=== PATIENT | female | born 1960 | race Caucasian/White ===

== ENCOUNTER 2018-09-15 04:56 | Inpatient (IN) ==
--- NOTE | 2018-08-23 12:30 | Anesthesiology Consultation ---
Date of Service August 23, 2018 Assessment & Plan (1) Encounter for pre-operative examination: Chart Review Chart Review: Acceptable Risk for Surgery and Patient seen in Pre Admission Testing Teaching & Discussion Instructed NPO after midnight before surgery, except medications with 15 cc of water. Medication instructions provided according to the PAT guidelines. History Surgery Operation Date: 09/15/18 11:30 Proposed Procedures p Bilateral Total Knee Arthroplasty - Keven Mcdermott MD Height/Weight Height: 5 ft 6.5 in Weight: 111.7 kg Allergies Allergy/AdvReac Type Severity Reaction Status Date / Time erythromycin base Allergy Intermediate FELT GOOFY Verified 08/19/18 13:06 IN HEAD Penicillins Allergy Mild Rash Verified 08/19/18 13:06 meperidine [From Demerol] AdvReac Mild FEEL SICK Verified 08/19/18 13:06 Medications Home Medications Medication Instructions Recorded Confirmed Last Taken amitriptyline 75 mg PO HS 08/19/18 08/19/18 Unknown carvedilol [Coreg] 3.125 mg PO BID 08/19/18 08/19/18 Unknown insulin NPH isoph U-100 human 30 unit SUBCUT QAM 08/19/18 08/19/18 Unknown [Humulin N NPH Insulin KwikPen] lisinopril [Zestril] 5 mg PO QAM 08/19/18 08/19/18 Unknown meloxicam [Mobic] 15 mg PO QAM 08/19/18 08/19/18 Unknown metformin 1,000 mg PO BID 08/19/18 08/19/18 Unknown multivitamin 1 tab PO DAILY 08/19/18 08/19/18 Unknown omeprazole 20 mg PO BID 08/19/18 08/19/18 Unknown sertraline [Zoloft] 50 mg PO QAM 08/19/18 08/19/18 Unknown Past Medical History Medical History Depression Diabetes mellitus, type 2 GERD (gastroesophageal reflux disease) Hypertension Migraine Obesity Osteoarthritis PVC (premature ventricular contraction) BENIGN Past Family History Family History Father Family hx of colon cancer Past Surgical History Surgical History Family history of reaction to anesthesia SISTER-SLOW TO WAKE UP History of arthroscopy RT/LEFT KNEE History of carpal tunnel release RT/LEFT History of section X 2 History of cholecystectomy History of colonoscopy History of dilatation and curettage History of esophagogastroduodenoscopy (EGD) History of tooth extraction Nausea and vomiting after administration of anesthetic agent Past Anesthesia History No Hx of Anesthesia Complications (other than PONV) and No Family Hx of Anesthesia Complications History of PONV Yes (mostly with jann) Motion Sickness Screening History of Motion Sickness: Yes Social History Smoking Status: Never smoker Do You Dip or Chew Tobacco: No Hx Alcohol Use: No Hx Substance Use: No substance use type: does not use Exercise / Class Metabolic Activity III < 4 Walking/Shop/Light housework (+SOB, mild, with 1 FOS, denies CP. No SOB with ambulation.) Review of Systems Pt denies any recent chest pain, shortness of breath, palpitations, cough, fever or URI. Physical Exam Vital Signs BP: 116/74 P: 73bpm SPO2: 98% RA T: 98.0 F R: 16 ENMT Mouth: + chipped teeth (one broken corwn/root canal bottom L molar); no dental restorations and no loose teeth Thyromental Distance: > or= 3.5 Finger Breadths (3.5) Mallampati Class: I Neck normal visual inspection; neck extension not limited Respiratory normal respiratory effort Auscultation: lungs clear to auscultation bilaterally Cardiovascular Rate/Rhythm: regular rate and regular rhythm Heart Sounds: no murmur Vessels: no carotid bruit Testing Electrocardiogram Date: 08/23/18 Findings: + NSR @ (69) Chest X-Ray Date: 08/23/18 Findings: + NAD Laboratory Results 08/23/18 13:08 08/23/18 13:08 Blood Type O Positive 08/23/18 13:00 Antibody Screen NEGATIVE 08/23/18 13:00 PT 10.6 Seconds (9.0-12.0) 08/23/18 13:08 INR 1.1 (0.9-1.1) 08/23/18 13:08 APTT 25.5 Seconds (21.0-31.0) 08/23/18 13:08 Hemoglobin A1c 7.4 % (4.5-5.6) H 08/23/18 13:08 Urine Color Yellow 08/23/18 Unknown Urine Appearance Clear (Clear) 08/23/18 Unknown Urine pH 5.0 (4.5-7.5) 08/23/18 Unknown Ur Specific [place] 1.015 (1.000-1.030) 08/23/18 Unknown Urine Protein Negative (Negative) 08/23/18 Unknown Urine Glucose (UA) Negative (Negative) 08/23/18 Unknown Urine Ketones Negative (Negative) 08/23/18 Unknown Urine Nitrite Negative (Negative) 08/23/18 Unknown Ur Leukocyte Esterase Negative (Negative) 08/23/18 Unknown
--- NOTE | 2018-08-23 12:33 | PAT Medication Instructions ---
Medication Instructions Date of Service August 23, 2018 Home Medications amitriptyline 75 mg PO HS carvedilol [Coreg] 3.125 mg PO BID [Humulin N NPH Insulin KwikPen] 30 unit SUBCUT QAM lisinopril [Zestril] 5 mg PO QAM meloxicam [Mobic] 15 mg PO QAM metformin 1,000 mg PO BID multivitamin 1 tab PO DAILY omeprazole 20 mg PO BID sertraline [Zoloft] 50 mg PO QAM ASK your surgeon for instructions meloxicam [Mobic] 15 mg PO QAM DO NOT take the morning of surgery lisinopril [Zestril] 5 mg PO QAM metformin 1,000 mg PO BID multivitamin 1 tab PO DAILY Take morning of surgery With a small sip of water, OTHERWISE NOTHING TO EAT OR DRINK AFTER MIDNIGHT: carvedilol [Coreg] 3.125 mg PO BID omeprazole 20 mg PO BID sertraline [Zoloft] 50 mg PO QAM Take evening before surgery amitriptyline 75 mg PO HS carvedilol [Coreg] 3.125 mg PO BID metformin 1,000 mg PO BID Insulin Dependent Diabetic Patients * Test your blood sugar the morning of surgery * If Blood Sugar is GREATER THAN 150, take HALF of your regular dose of: [ Humulin N NPH Insulin KwikPen] 30 unit SUBCUT QAM -- TAKE 15 UNITS * If Blood Sugar is LESS THAN 150, DO NOT TAKE ANY: [Humulin N NPH Insulin KwikPen] Other Notes If you have any questions please call us at [phone] or [phone] or [phone] or [phone]
--- NOTE | 2018-08-23 13:30 | XRay Report ---
XR chest Pre-admission PA/Lat CLINICAL HISTORY: pat preoperative COMPARISON STUDY: No previous studies for comparison. FINDINGS: The bones soft tissues and hemidiaphragms are normal. The cardiomediastinal silhouette is n ormal. The lungs are clear. The pulmonary vasculature is normal. IMPRESSION: Negative chest. The above report was generated using voice recognition software. It may contain grammatical, syntax or spelling errors. Electronically signed by: Kingsley Rothman M.D. 08/23/2018 1:29 PM
[2018-08-23 13:46] LABS: Basophils # (auto) 0.02 K/uL (0-0.2); Basophils % (auto) 0.3 %; Eosinophils # (auto) 0.21 K/uL (0-0.5); Eosinophils % (auto) 2.9 %; Hematocrit (blood only) 37.9 % (37-47); Hemoglobin 11.6 g/dL (12.0-16.0); Immature Granulocytes # (auto) 0.01 K/uL (0.00-0.02); Immature Granulocytes % (auto) 0.1 %; Lymphocytes # (auto) 1.69 K/uL (1.2-3.4); Lymphocytes % (auto) 23.4 %; Mean Corpuscular Hgb Conc 30.6 g/dL (32-36); Mean Corpuscular Volume 91.1 fL (80-100); Mean Platelet Volume 9.7 fL (7.4-10.4); Monocytes # (auto) 0.43 K/uL (0.11-0.59); Neutrophils # (auto) 4.86 K/uL (1.4-6.5); Neutrophils % (auto) 67.3 %; Platelet Count 307 K/uL (130-400); RDW Coefficient of Variation 13.3 % (11.5-14.5); Red Blood Count 4.16 M/uL (4.2-5.4); White Blood Count 7.22 K/uL (4.8-10.8)
[2018-08-23 13:51] LABS: Appearance Urine Clear (Clear); Bilirubin Urine Negative (Negative); Blood Urine Negative (Negative); Color Urine Yellow; Glucose Urine UA Negative (Negative); Ketones Urine Negative (Negative); Leukocyte Esterase Urine Negative (Negative); Nitrite Urine Negative (Negative); Protein Urine Negative (Negative); Specific Gravity Urine 1.015 (1.000-1.030); Urobilinogen Urine Negative (Negative)
[2018-08-23 14:01] LABS: INR 1.1 (0.9-1.1); Partial Thromboplastin Time 25.5 Seconds (21.0-31.0); Prothrombin Time 10.6 Seconds (9.0-12.0)
[2018-08-23 14:29] LABS: Estimated Average Glucose 166 mg/dl; Hemoglobin A1C 7.4 % (4.5-5.6)
[2018-08-23 15:39] LABS: Albumin Level 3.5 gm/dl (3.4-5.0); Calcium 9.4 mg/dl (8.5-10.1); Est GFR (African American) 99.3; Est GFR (Non-African American) 85.7; Potassium 4.6 mmol/L (3.5-5.1)
--- NOTE | 2018-09-14 12:23 | History and Physical Report ---
DATE OF ADMISSION: 09/15/2018 CHIEF COMPLAINT: Chronic bilateral knee pain. HISTORY OF PRESENT ILLNESS: This is a 58-year-old female patient of Dr. Mcdermott'liliana complaining of chronic bilateral knee pain, longstanding, now progressively getting worse. She has failed conservative treatment including anti-inflammatories, bilateral intra-articular injections, home exercise program and the use of crutches. She has been diagnosed with end-stage osteoarthritis in both of her knees and wishes to proceed with bilateral total knee arthroplasty. PAST MEDICAL HISTORY: Diabetes with insulin, acid reflux, hiatal hernia, obesity, kidney stones. SOCIAL HISTORY: Nonsmoker, nondrinker. PAST SURGICAL HISTORY: Gallbladder, x2, knee arthroscopy x2, carpal tunnel x2. FAMILY HISTORY: Noncontributory. REVIEW OF SYSTEMS: Chronic bilateral knee pain and instability. Otherwise, denies any shortness of breath, chest pain, nausea, vomiting or any other joint complaints. MEDICATIONS: Include Humulin 30 units daily, metformin 100 mg twice daily, lisinopril 5 mg daily, Zoloft 50 mg daily, amitriptyline 75 mg daily, Coreg 3.25 mg twice daily, omeprazole 20 mg twice daily, meloxicam 15 mg daily. ALLERGIES: PENICILLIN, ERYTHROMYCIN AND DEMEROL. PHYSICAL EXAMINATION: GENERAL: Well-developed, well-nourished 58-year-old female in no acute distress. She is alert and oriented x3 and pleasant. HEENT: Normocephalic, atraumatic. Extraocular motions are intact. Pupils are equal and reactive to light. HEART: Regular rate and rhythm. No murmurs appreciated. LUNGS: Clear. ABDOMEN: Soft, nontender, bowel sounds present. EXTREMITIES: Both knees with crepitation and mild effusion, both knees with limited range of motion, both knees with varus deformity and medial joint line tenderness. Neurologically and neurovascularly, she is intact in both lower extremities. DIAGNOSES: Bilateral knee end-stage osteoarthritis, diabetes with insulin, acid reflux, hiatal hernia, obesity, history of kidney stones. PLAN: The patient was advised of her diagnosis. Indications, risks, benefits, and postop course have all been reviewed. The patient wished to proceed with bilateral total knee arthroplasty. Necessary consent forms, preoperative testing and clearances will be obtained. EMMANUEL
[2018-09-15] MEDS ORDERED: ACETAMINOPHEN 500 MG TAB PO SCH (06:00)
[2018-09-15] MEDS ORDERED: FAMOTIDINE 20 MG TAB PO SCH (06:00)
[2018-09-15] MEDS ORDERED: CeleBREX 200 MG CAP PO SCH (06:00)
[2018-09-15] MEDS ORDERED: VANCOMYCIN HCL 1,750 MG in SODIUM CHLORIDE 0.9% 500 ML IV SCH ×2 (06:00→18:00)
[2018-09-15] MEDS ORDERED: ROPIVACAINE 0.5% HCL/PF 150 MG, BUPIVACAINE 0.5% MPF 30 ML, EPINEPHrine 30MG/30ML (OR U... INFIL SCH (06:00)
[2018-09-15] MEDS ORDERED: TRANEXAMIC ACID 1,000 MG **IV Pre-op IV SCH (06:00)
[2018-09-15] MEDS ORDERED: LR 500ML BOLUS, THEN 15ML/HR IV SCH (06:00)
[2018-09-15] MEDS ORDERED: GABAPENTIN 300 MG x 2 PO SCH (06:00)
[2018-09-15] MEDS ORDERED: METOCLOPRAMIDE HCL 10 MG TABLET PO SCH (06:00)
[2018-09-15] MEDS ORDERED: BUPIVACAINE 0.5 % 5 MG/1 ML PF 10ML VIAL ONE (06:22)
[2018-09-15] MEDS ORDERED: BUPIVACAINE/EPINEPHRINE 0.5% MPF 1:200,000 30 ML VIAL ONE (06:22)
[2018-09-15] MEDS ORDERED: DEXAMETHASONE SOD INJ 4 MG/ML VIAL ONE (06:23)
[2018-09-15] MEDS ORDERED: TRANEXAMIC ACID 1,000 MG **IV Intra-op IV SCH (06:30)
[2018-09-15] MEDS ORDERED: MIDAZOLAM HCL 1 MG/ML 2ML VIAL ONE (06:39)
[2018-09-15] MEDS ORDERED: fentaNYL citrate 100 MCG/2 ML VIAL ONE (06:39)
[2018-09-15] MEDS ORDERED: ORTHO JOINT ANESTHETIC ONE (06:53)
[2018-09-15] MEDS ORDERED: POVIDONE-IODINE OP SOLN 30 ML BTL ONE (06:53)
[2018-09-15] MEDS ORDERED: BACITRACIN INJ 50,000 UNIT VIAL ONE (06:53)
--- NOTE | 2018-09-15 07:14 | History & Physical Bridge Note ---
Date of Service September 15, 2018 History & Physical Bridge Note I have examined the patient, reviewed the History & Physical and in the interval since the performance of the History & Physical I have noted the following changes of clinical significance: no changes noted
[2018-09-15] MEDS ORDERED: ePHEDrine sulfate 50 MG/ML AMP IV PRN (07:40)
[2018-09-15] MEDS ORDERED: ATROPINE SULFATE 0.1 MG/ML 10ML SYR IV PRN (07:40)
[2018-09-15] MEDS ORDERED: ONDANSETRON INJ 2 MG/ML 2 ML VIAL IV PRN ×2 (07:40→12:01)
[2018-09-15] MEDS ORDERED: fentaNYL citrate 100 MCG/2 ML VIAL IV PRN (07:40)
[2018-09-15] MEDS ORDERED: PROPOFOL IV EMULSION 10 MG/ML 20 ML VIAL IV ONE ×2 (08:13→08:48)
[2018-09-15] MEDS ORDERED: LIDOCAINE HCL 2% 2 ML VIAL/AMP(20MG/ML) INFIL ONE ×2 (08:13→11:29)
--- NOTE | 2018-09-15 10:18 | Post Operative Brief Note ---
Immediate Post Op Note v1 Date of Surgery September 15, 2018 Pre & Post Diagnosis Operation Date: 09/15/18 07:30 Pre-Op Diagnosis: BILATERAL KNEE OSTEOARTHRITIS, obesity BMI 39 Post-Op Diagnosis: BILATERAL KNEE OSTEOARTHRITIS, obesity BMI 39 Procedure Operation Date: 09/15/18 07:30 Actual Procedures p Bilateral Total Knee Arthroplasty(Bilateral) - Keven Mcdermott MD Surgeon Keven Mcdermott MD Carcass Splitter Manish ZENDEJAS Estimated Blood Loss 10 Findings Consistent with Post-Op Diagnosis Specimens Bone cuts Drains Hemovac Drain (bilateral ) Anesthesia Type Spinal MAC Complications none Disposition Accompanied Patient To Recovery: No Disposition: Recovery Room Overlapping Procedure I was immediately available: during the entire case.
--- NOTE | 2018-09-15 10:32 | Operative Report ---
Post Operative Report Pre & Post Diagnosis Operation Date: 09/15/18 07:30 Pre-Op Diagnosis: BILATERAL KNEE OSTEOARTHRITIS, obesity BMI 39.6 Post-Op Diagnosis: BILATERAL KNEE OSTEOARTHRITIS, obesity BMI 39.6 Procedure Operation Date: 09/15/18 07:30 Actual Procedures p Bilateral Total Knee Arthroplasty(Bilateral) - Keven Mcdermott MD Surgeon Keven Mcdermott MD Iron Cutter Manish ZENDEJAS Estimated Blood Loss 10 Findings See Below Severe tricompartmental DJD varus knees [id number] medial compartment and patellofemoral partial ACL tears with degeneration ACL Specimens Bone cuts Drains 2 Hemovac in each knee Anesthesia Type Spinal MAC Complications none Disposition Accompanied Patient To Recovery: No Disposition: Recovery Room Indications 58-year-old female with severe bilateral knee osteoarthritis she has had extensive conservative management. She developed allergy to steroid injections. Radiographs demonstrate that she has severe tricompartmental DJD [id number] patellofemoral and medial compartment bilaterally with varus knees. Description of Procedure The patient was taken to the operating room and anesthetized under spinal adductor nerve block bilateral knees. Patient was placed supine on the the operating table. A pneumatic tourniquet was placed about both upper thighs. The knee exam demonstrated left knee had a flexion contracture right knee did not she had flexion to 125 degrees bilateral with varus knees [id number] crepitation and small effusions. She had obese knees with obese upper thighs. No varus valgus instability. Attention was first taken to the left leg. The left leg was elevated exsanguinated with Esmarch bandage and the pneumatic tourniquet was raised to 350 millimeters mercury. A longitudinal incision was made across the anterior knee. Skin flaps were elevated. An incision was made into the medial retinaculum and extended up into the mid third of the quadriceps tendon and extended down to the tibial tubercle. Intra-articular findings demonstrated tricompartmental DJD [id number] patellofemoral medial compartment large osteophytes throughout the knee. She had near complete tears of the ACL which only had a few strands ligament remaining with rest being degenerative.. The knee was exposed by excising cruciate ligaments and menisci. The infrapatellar fat pad was resected. The fat pad over the anterior femur at the upper aspect of the articular surface was resected for placement of the component in that area. A subperiosteal peel lateral release was performed around the patella The Page [employer] Nephew journey 2.0 total knee arthroplasty system was utilized for the procedure. The custom femoral cutting guide was pinned in position. The distal femoral cut was made. The size 4, 5 in 1 cutting block was placed. The anterior posterior and chamfer cuts were made. It was noted that the patient had soft bone with osteoporotic type bone. The knee was extended and a free hand cut technique was performed to the patella. The patella with was measured and the width was reproduced using a 32 patella component. 3 drill holes are made for the patella component pegs. The tibia was then subluxed. The custom tibial cutting block was pinned in position and the proximal tibial cut was made with the oscillating saw. The size 4 tibial trial was externally rotated in line with the tibial tubercle and pinned in position. The punch for the stem was used. The femoral trial was inserted and centered the notch cutting devices were used and the collet was placed. Tibial trials were used for the insert. The size 12 trial gave balanced ligaments through full range of motion. Patella tracking was assessed with range of motion. The patella tracked centrally. The trials were removed. The Orthomix anesthetic cocktail was injected per protocol. The cut bone surfaces and soft tissue were copiously irrigated with antibiotic solution with bacitracin. The final components were cemented with Simplex cement. The final components were size 4 left Page & Nephew journey 2.0 posterior stabilized femur component, 4 primary tibial baseplate, 12 high flex posterior stabilized poly-insert for tibia and 32 symmetrical patella. While the cement cured the Betadine soak was used per protocol. At this time the right leg was elevated exsanguinated with an Esmarch bandage and matter was raised to 350 mmHg as well. Approach to the right knee was performed in similar fashion to the left. My PA Manish Moncada performed the closure on the left knee simultaneously while I exposed the right knee. When the cement cured the left knee was copiously irrigated with pulsatile lavage antibiotic solution with bacitracin. 2 drains were brought out laterally connected to Hemovac. The quadriceps tendon and medial retinaculum were closed with interrupted [id number] #1 Vicryl sutures. The knee was taken through full range of motion and repair was secure. The subcutaneous tissues were closed with 2-0 Vicryl sutures. The skin was closed with geoff. Temporary sterile dressing was applied and tourniquet was let down on the left knee. Normal circulation was noted. Intra-articular findings of the right knee demonstrate tricompartmental DJD [id number] patellofemoral medial compartment degenerative partial tearing of the ACL tricompartmental osteophytes. Exposure was similar to the left knee. A size 4 custom femoral cutting block was placed the distal femoral cut was first made followed by the anterior posterior and chamfer cuts on the femur followed by the patella exposure with subperiosteal peel lateral release and freehand cut patella cut and osteophytes removed from the patella and drill holes made into the patella. The tibia was exposed and custom tibial cutting block was placed in the proximal tibial cut was made and a lamina sales secretary was used to verify ligamentous balance in extension and flexion. Was noted again the patient had significant soft osteoporotic bone. With the flexion extension gaps being balanced the tibia was exposed and the size 4 tibial trial was actually rotated in line with the tibial tubercle pinned in position and the punch was then was used and then the 4 femoral trial was inserted centered the notch cutting device was used and a call was placed and on 12 insert gait balance ligaments through full range of motion and patella tracked centrally. Trials removed, remainder of anesthetic cocktail injected into the soft tissues per protocol and the knee was copiously irrigated with pulsatile lavage antibiotic solution with bacitracin. Final components were cemented with Simplex cement. Final right components were the Page [employer] Nephew journey 2.0 size 4 posterior stabilized right femur with a 4 primary tibial baseplate with a 12 mm high flex post to stabilize tibial poly-insert and 32 symmetrical patella. After the cement cured on this knee the knee was closed with [id number] #1 Vicryl sutures in the question of tendon medial retinaculum knee was taken through full range of motion and the repair was secure. The subcutaneous tissues were closed with [id number] 2-0 Vicryl sutures and skin closed with geoff. A sterile Silverlon dressing was applied to each incision. A double Ronald wrap foot to the thigh was placed each knee. The tourniquet was let down and the patient had good capillary refill to the extremity. The patient tolerated the procedure well. My physician certified surgical tech/first assistant Manish ZENDEJAS assisted in the procedure including prepping draping leg positioning soft tissue retraction instrument management and assisted in the closure ,dressings application and will participate in postoperative care the patient. I attest to the content of the Intraoperative Record and any orders documented therein. Any exceptions are noted below.
[2018-09-15] MEDS ORDERED: KETAMINE HCL INJ 50 MG/ML 10 ML VIAL ONE (11:14)
--- NOTE | 2018-09-15 11:30 | XRay Report ---
XR knee LT 2V routine CLINICAL HISTORY: 58 years-old Female presenting with Surgical Post Op. TECHNIQUE: Frontal and crosstable lateral views of the left knee were obtained. COMPARISON: None. FINDINGS: Postsurgical changes of total left arthroplasty with patellar resurfacing. No malalignment. No peripr osthetic fracture. Expected intra-articular and soft tissue emphysema. A surgical drain is in place. Overlying skin geoff noted. IMPRESSION: Expected postsurgical appearance status post total left knee arthroplasty with patellar resurfacing. Electronically signed by: Rogerio Almonte M.D. 09/15/2018 11:28 AM
--- NOTE | 2018-09-15 11:31 | XRay Report ---
XR knee RT 2V routine CLINICAL HISTORY: Surgical Post Op COMPARISON: None. DISCUSSION: Anatomic alignment post total right knee arthroplasty. Good contact between prosthetic an d underlying bone. Expected soft tissue postoperative change. IMPRESSION: Anatomic alignment post total right knee arthroplasty. The above report was generated using voice recognition software. It may contain grammatical, syntax or spelling errors. Electronically signed by: Kingsley Rothman M.D. 09/15/2018 11:29 AM
--- NOTE | 2018-09-15 11:44 | Anesthesiology Progress Note ---
Date of Service September 15, 2018 Anesthesia Post Procedure Vital Signs Vital Signs: Temp Pulse Pulse Resp BP Pulse Ox 09/15/18 11:35 36.4 C L 63 14 135/67 94 09/15/18 11:25 61 16 133/69 96 09/15/18 11:15 66 24 136/71 95 09/15/18 11:05 64 15 126/67 96 09/15/18 10:55 67 14 129/71 96 09/15/18 10:46 36.6 C 70 16 130/71 97 09/15/18 06:04 36.7 C 73 20 134/82 97 Pain Intensity Left Knee: Pain Intensity: 5 Right Knee: Pain Intensity: 7 Notes Mental Status: alert / awake / arousable Patient Amnestic to Procedure: Yes Nausea / Vomiting: adequately controlled Pain: adequately controlled Airway Patency, RR, SpO2: stable & adequate BP & HR: stable & adequate Hydration State: stable & adequate Neuraxial Anesthesia: was administered and sensory block is resolving Anesthetic Complications: no major complications apparent
[2018-09-15] MEDS ORDERED: HYDROmorphone INJ 0.5 MG/0.5 ML SYR IV PRN (12:01)
[2018-09-15] MEDS ORDERED: BISACODYL 10 MG SUPP PR PRN (12:01)
[2018-09-15] MEDS ORDERED: NALOXONE HCL 0.4 MG/1 ML VIAL/CARP IV PRN (12:01)
[2018-09-15] MEDS ORDERED: SODIUM CHLORIDE 0.9% 1000ML 1,000 ML IV SCH (12:01)
[2018-09-15] MEDS ORDERED: MAGNESIUM HYDROXIDE SUSP 30 ML UDC PO PRN (12:01)
[2018-09-15] MEDS ORDERED: METOCLOPRAMIDE HCL INJ 5 MG/ML 2 ML VIAL IV PRN (12:01)
[2018-09-15] MEDS ORDERED: VANCOMYCIN CONSULT ACTIVE PRN (12:01)
--- NOTE | 2018-09-15 13:44 | Consultation ---
Date of Consultation September 15, 2018 Assessment & Plan (1) S/p total knee replacement, bilateral: - Pain management, bowel regimen and DVT ppx per the primary team - PT/OT consults - Follow am CBC to monitor for acute blood loss (2) DM II (diabetes mellitus, type II), controlled: - Continue ISS with accuchecks - [place] on NPH 30 U QAM and metformin 1000 mg BID- Resume home meds tomorrow - A1C = 7.4 on 08/23/18 - HH/Diabetic diet (3) Benign essential HTN: - BP well controlled, continue home carvedilol 3.125 mg BID. Pt has not taken lisinopril 5 mg PO QAM for past 4 months. BP well controlled. - weight loss of 12 lbs prior to surgery with diet and exercise. - Pt dc'd statin therapy ~ 4 months ago. States cholesterol panel was good. F/U with pcp regarding resuming lisinopril and statin. (4) GERD (gastroesophageal reflux disease): - Continue omeprazole 20 mg BID (5) Osteoarthritis: - Has been using meloxicam 15 mg QAM as outpatient, other pain management as above s/p bilateral TKA. (6) Depression: - Continue sertraline 50 mg QAM (7) Migraine headache: - Continue amitriptyline 75 mg HS (8) PVC (premature ventricular contraction): - Hx of such, stable (9) Obesity (BMI 30-39.9): - BMI of 39.6, diet and exercise to be encouraged upon discharge. CODE: FULL Thank you for involving us in the care of Ms. Snow. Please do not hesitate to call with questions or concerns. At this time medicine service will sign off. Supervising Physician Co-Signing Physician Notes 58 y/o F Hx HTN, DM II, GERD, obese - BMI of 39.6, osteoarthritis, depression, migraines. Presented for elective bilateral TKA 09/15/18. She is recovering well in the post-op period. She denies CP, SOB, nausea, vomiting, fevers or excessive pain at the surgical site. OE AAO x 3 S1, 2 R CTAB NT, ND No CCE - pulses palpated No deficits P: PT, OT and postop anticoagulation to discretion of ortho - recommended at earliest possible time due to higher risk Place on SS for DM Cont Carvedilol, amitriptyline, setraline gene-op - would only hold Metformin at present History of Present Illness Reason for Consultation: Medical Management Requesting Physician: Dr. Mcdermott Attending Physician: Keven Mcdermott MD History of Present Illness This is a 58 yo F with PMHx of HTN, DM II, hx of PVCx, GERD, obesity with BMI of 39.6, osteoarthritis, depression and migraines who presents for an elective bilateral TKA by Dr. Mcdermott on 09/15/18. Pts daughter is present at bedside. Pt notes she is doing well, ate lunch without difficulty. She is doing well, feels a little sore. + still slightly numb in bilateral legs but sensation is coming back. Pt denies flatus yet, no BM, soto catheter in place. She did not take any insulin this morning. Allergies Allergy/AdvReac Type Severity Reaction Status Date / Time Penicillins Allergy Mild Rash Verified 09/15/18 06:00 erythromycin base AdvReac Intermediate FELT GOOFY Verified 09/15/18 06:00 IN HEAD meperidine [From Demerol] AdvReac Mild FEEL SICK Verified 09/15/18 06:00 Home Medications Home Medications Medication Instructions Recorded Confirmed Type amitriptyline 75 mg PO HS 08/19/18 09/15/18 History carvedilol [Coreg] 3.125 mg PO BID 08/19/18 09/15/18 History insulin NPH isoph U-100 human 30 unit SUBCUT QAM 08/19/18 09/15/18 History [Humulin N NPH Insulin KwikPen] meloxicam [Mobic] 15 mg PO QAM 08/19/18 09/15/18 History metformin 1,000 mg PO BID 08/19/18 09/15/18 History multivitamin 1 tab PO DAILY 08/19/18 09/15/18 History omeprazole 20 mg PO BID 08/19/18 09/15/18 History sertraline [Zoloft] 50 mg PO QAM 08/19/18 09/15/18 History Patient History Medical History Depression Diabetes mellitus, type 2 GERD (gastroesophageal reflux disease) Hypertension Migraine Obesity Osteoarthritis PVC (premature ventricular contraction) BENIGN Surgical History Family history of reaction to anesthesia SISTER-SLOW TO WAKE UP History of arthroscopy RT/LEFT KNEE History of carpal tunnel release RT/LEFT History of section X 2 History of cholecystectomy History of colonoscopy History of dilatation and curettage History of esophagogastroduodenoscopy (EGD) History of tooth extraction Nausea and vomiting after administration of anesthetic agent Family History Father Family hx of colon cancer Social History Communication Ability: Effective Beliefs That Will Affect Care: None marital status: Current Living Situation: Spouse Other Information That Helps Us Care for You: No Feels Safe at Home: Yes Safety Concerns: Feels Safe At This Time Smoking Status: Never smoker Hx Alcohol Use: No Hx Substance Use: No Review of Systems Constitutional: No fever, sweats or chills Eyes: No diplopia, no worsening or blurred vision ENT: normal hearing, no trouble swallowing Respiratory: No cough, sputum, dyspnea at rest or on exertion Cardiovascular: No chest pain, tightness or palpitations Abdomen: No pain, nausea, vomiting, diarrhea or constipation Musculoskeletal: No joint pain, calf pain, swelling Neurologic: No weakness, numbness/tingling, or balance problems Psychiatric: No anxiety or depression Skin: No rash or itch Physical Exam Vital Signs (Past 24 Hours): Last Vital Signs Temp 37 C 09/15/18 12:47 Pulse 72 09/15/18 12:47 Resp 16 09/15/18 12:47 BP 112/67 09/15/18 12:47 Pulse Ox 97 09/15/18 12:47 Physical Exam: General: awake, alert, no apparent distress, + obese Head: Normocephalic, atraumatic ENT: PERRL, EOMI, no pharyngeal exudate, mucous membranes moist Chest: Clear to auscultation, on room air, no adventitious breath sounds Cardiac: Regular rate and rhythm, no murmur, no JVD, normal peripheral pulses, good capillary refill Abdominal: NABS x 4 quadrants, soft, nontender to palpation, no rebound, guarding or tenderness Extremities: + LEIGHTON wrap in place, +hemovac drain in place, dressing c/d/i, ice packs on bilateral knees. no peripheral edema or erythema, calfs nontender to palpation, can wiggle toes, sensation intact to light touch but dulled. Psych: Normal mood and affect Neuro: AAO x 3, no motor deficits, speech is clear.
[2018-09-15] MEDS ORDERED: GLUCOSE 10 TABS/TUBE PO PRN (14:24)
[2018-09-15] MEDS ORDERED: DEXTROSE 50% 50 ML SYRINGE IV PRN (14:24)
[2018-09-15] MEDS ORDERED: GLUCOSE 40% GEL 15 GM TUBE PO PRN (14:24)
[2018-09-15] MEDS ORDERED: CARBOHYDRATES FOR HYPOGLYCEMIA PO PRN (14:24)
[2018-09-15] MEDS ORDERED: GLUCAGON FOR INJ 1 MG VIAL SQ PRN (14:24)
[2018-09-15] MEDS: OXYCODONE HCL IR 5 MG TAB (IMMEDIATE RELEASE) PO PRN (17:46)
[2018-09-15] MEDS: INSULIN ASPART 100 UNITS/ML 3 ML PEN SC SCH ×2 (17:51→21:42)
[2018-09-15] MEDS: CARVEDILOL 3.125 MG TAB PO SCH (21:11)
[2018-09-15] MEDS: DOCUSATE SODIUM 100 MG CAP PO SCH (21:11)
[2018-09-15] MEDS: AMITRIPTYLINE HCL 25 MG TAB PO SCH (21:12)
[2018-09-15] MEDS: PANTOprazole 40 MG TAB PO SCH (21:13)
[2018-09-15] MEDS: ACETAMINOPHEN 500 MG TAB PO SCH (21:13)
[2018-09-15] MEDS: SENNA 8.6 MG TAB PO SCH (21:13)
[2018-09-16] MEDS: ACETAMINOPHEN 500 MG TAB PO SCH ×3 (05:09→21:30)
[2018-09-16 06:34] LABS: Hematocrit (blood only) 30.2 % (37-47); Hemoglobin 9.3 g/dL (12.0-16.0); Mean Corpuscular Hgb Conc 30.8 g/dL (32-36); Mean Corpuscular Volume 89.6 fL (80-100); Mean Platelet Volume 9.3 fL (7.4-10.4); Platelet Count 218 K/uL (130-400); RDW Coefficient of Variation 13.2 % (11.5-14.5); Red Blood Count 3.37 M/uL (4.2-5.4); White Blood Count 10.39 K/uL (4.8-10.8)
[2018-09-16 07:04] LABS: BUN Creatinine Ratio 19.1 (10-20); Creatinine Clr Calc Pharmacy 110.6 ml/min; Est GFR (African American) 109.6; Est GFR (Non-African American) 94.6; Potassium 3.9 mmol/L (3.5-5.1)
--- NOTE | 2018-09-16 08:40 | Orthopedic Progress Note ---
Date of Service September 16, 2018 Assessment & Plan (1) Status post total bilateral knee replacement using cement: We will see how the patient responds to sitting up at the bedside after breakfast. Plans will be to start PT and OT protocols today weightbearing as tolerated. Continue DVT prophylaxis with Xarelto, SCDs and BOB hose. Continue current pain regimen. (2) Acute blood loss anemia: Anemia likely due to surgical loss. We will continue to follow her H&H. If she continues to have symptoms, we will restart her fluids. Continue medical management per hospitalist service Subjective Patient is postop day 1 status post bilateral total knee arthroplasty. She is currently lying in bed awake and alert. She states that when she tried to get up this morning to use the restroom, she had a fair amount of lightheadedness and her blood pressure had dropped down. Current blood pressure reading at a little bit after 8:00 this morning was 96/53 and pulse was 48. She denies any lightheadedness at this time. She did have a little bit of nausea which has subsided. She denies any chest pain or shortness of breath. Denies calf pain. Pain is controlled in the knees at this time. Physical Exam Vital Signs (Past 24 Hours): Last Vital Signs Temp 36.6 C 09/16/18 07:36 Pulse 48 L 09/16/18 08:11 Resp 20 09/16/18 08:11 BP 96/53 L 09/16/18 08:11 Pulse Ox 99 09/16/18 08:11 Physical Exam: Bilateral dressings are clean dry and intact. Calves are soft and nontender. Neurovascular is intact. Toes are mobile. Drainage from her Hemovac has slowed down and was 75 and 50 mL. Results & Data Laboratory Results 09/16/18 09/16/18 09/16/18 Range/Units 06:19 06:19 06:19 WBC 10.39 (4.8-10.8) K/uL RBC 3.37 L (4.2-5.4) M/uL Hgb 9.3 L (12.0-16.0) g/dL Hct 30.2 L (37-47) % MCV 89.6 (80-100) fL MCH 27.6 (25-34) pg MCHC 30.8 L (32-36) g/dL RDW Std Deviation 43.0 (36.4-46.3) fL RDW Coeff of Isadora 13.2 (11.5-14.5) % Plt Count 218 (130-400) K/uL MPV 9.3 (7.4-10.4) fL Sodium 139 (136-145) mmol/L Potassium 3.9 (3.5-5.1) mmol/L Chloride 107 (98-107) mmol/L Carbon Dioxide 26 (21-32) mmol/L Anion Gap 6.0 (3-11) BUN 14 (7-18) mg/dl Creatinine 0.71 (0.6-1.2) mg/dl Est Cr Clr Drug Dosing 110.6 ml/min Est GFR ( Amer) 109.6 Est GFR (Non-Af Amer) 94.6 BUN/Creatinine Ratio 19.1 (10-20) Glucose 162 H (70-99) mg/dl POC Glucose (70-99) Calcium 8.0 L (8.5-10.1) mg/dl Hepatitis C Ab Screen Pending 09/15/18 09/15/18 09/15/18 Range/Units 21:09 17:26 12:26 WBC (4.8-10.8) K/uL RBC (4.2-5.4) M/uL Hgb (12.0-16.0) g/dL Hct (37-47) % MCV (80-100) fL MCH (25-34) pg MCHC (32-36) g/dL RDW Std Deviation (36.4-46.3) fL RDW Coeff of Isadora (11.5-14.5) % Plt Count (130-400) K/uL MPV (7.4-10.4) fL Sodium (136-145) mmol/L Potassium (3.5-5.1) mmol/L Chloride (98-107) mmol/L Carbon Dioxide (21-32) mmol/L Anion Gap (3-11) BUN (7-18) mg/dl Creatinine (0.6-1.2) mg/dl Est Cr Clr Drug Dosing ml/min Est GFR ( Amer) Est GFR (Non-Af Amer) BUN/Creatinine Ratio (10-20) Glucose (70-99) mg/dl POC Glucose 142 H 160 H 168 H (70-99) Calcium (8.5-10.1) mg/dl Hepatitis C Ab Screen 09/15/18 Range/Units 10:50 WBC (4.8-10.8) K/uL RBC (4.2-5.4) M/uL Hgb (12.0-16.0) g/dL Hct (37-47) % MCV (80-100) fL MCH (25-34) pg MCHC (32-36) g/dL RDW Std Deviation (36.4-46.3) fL RDW Coeff of Isadora (11.5-14.5) % Plt Count (130-400) K/uL MPV (7.4-10.4) fL Sodium (136-145) mmol/L Potassium (3.5-5.1) mmol/L Chloride (98-107) mmol/L Carbon Dioxide (21-32) mmol/L Anion Gap (3-11) BUN (7-18) mg/dl Creatinine (0.6-1.2) mg/dl Est Cr Clr Drug Dosing ml/min Est GFR ( Amer) Est GFR (Non-Af Amer) BUN/Creatinine Ratio (10-20) Glucose (70-99) mg/dl POC Glucose 162 H (70-99) Calcium (8.5-10.1) mg/dl Hepatitis C Ab Screen
[2018-09-16] MEDS ORDERED: PHARMACY GLYCEMIC MGMT CONSULT PRN (08:43)
[2018-09-16] MEDS ORDERED: LISINOPRIL 5 MG TAB PO SCH (09:00)
[2018-09-16] MEDS: CARVEDILOL 3.125 MG TAB PO SCH ×2 (09:00→21:36)
[2018-09-16] MEDS: DOCUSATE SODIUM 100 MG CAP PO SCH ×2 (09:00→21:33)
[2018-09-16] MEDS ORDERED: ENOXAPARIN INJ 40 MG/0.4 ML SYR SQ SCH (09:00)
[2018-09-16] MEDS: METFORMIN HCL 500 MG TAB PO SCH ×2 (09:00→21:31)
[2018-09-16] MEDS: PANTOprazole 40 MG TAB PO SCH ×2 (09:01→21:33)
[2018-09-16] MEDS: MULTIVITAMIN TAB PO SCH (09:01)
[2018-09-16] MEDS: SERTRALINE HCL 50 MG TABLET PO SCH (09:01)
[2018-09-16] MEDS: RIVAROXABAN 10 MG TABLET PO SCH (09:01)
[2018-09-16] MEDS: INSULIN ASPART 100 UNITS/ML 3 ML PEN SC SCH ×4 (09:05→21:29)
[2018-09-16] MEDS: OXYCODONE HCL IR 5 MG TAB (IMMEDIATE RELEASE) PO PRN ×3 (09:06→19:21)
[2018-09-16] MEDS: INSULIN HUMAN NPH SC SCH (09:07)
--- NOTE | 2018-09-16 09:25 | Anesthesiology Progress Note ---
Date of Service September 16, 2018 Anesthesia Post Procedure Vital Signs Vital Signs: Temp Pulse Pulse Pulse Resp BP Pulse Ox 09/16/18 08:55 71 112/72 09/16/18 08:11 48 L 20 96/53 L 99 09/16/18 07:36 36.6 C 70 17 104/69 98 09/16/18 03:07 37.0 C 74 16 106/66 97 09/15/18 22:55 37.0 C 79 16 123/76 95 09/15/18 21:16 79 125/77 09/15/18 19:48 37.2 C 84 16 149/66 H 94 09/15/18 15:35 36.6 C 83 16 159/82 H 95 09/15/18 13:54 36.4 C L 72 16 120/72 96 09/15/18 12:47 37 C 72 16 112/67 97 09/15/18 12:23 67 16 133/76 97 09/15/18 11:50 36.5 C 63 12 124/78 97 09/15/18 11:35 36.4 C L 63 14 135/67 94 09/15/18 11:25 61 16 133/69 96 09/15/18 11:15 66 24 136/71 95 09/15/18 11:05 64 15 126/67 96 09/15/18 10:55 67 14 129/71 96 09/15/18 10:46 36.6 C 70 16 130/71 97 Pain Intensity Left Knee: Pain Intensity: 5 Right Knee: Pain Intensity: 7 Notes Mental Status: alert / awake / arousable and participated in evaluation Patient Amnestic to Procedure: Yes Nausea / Vomiting: adequately controlled Pain: adequately controlled Airway Patency, RR, SpO2: stable & adequate Hydration State: stable & adequate Neuraxial Anesthesia: was administered and sensory block is resolving Anesthetic Complications: no major complications apparent and Pt Satisfied with anesthetic care
--- NOTE | 2018-09-16 09:54 | Pharmacy Report ---
Glycemic Control Consultation - Date of Service September 16, 2018 - Scope Scope: Glycemic Pharmacist consulted by Manish Moncada on 09-16-18 for glycemic control and to write orders per [facility] inpatient glycemic control protocol - Objective Weight: 111.4 kg Accuchecks BSG (last 24hrs): 09/15/18 09/15/18 09/15/18 10:50 12:26 17:26 Glucose POC Glucose 162 H 168 H 160 H 09/15/18 09/16/18 09/16/18 21:09 06:19 08:07 Glucose 162 H POC Glucose 142 H 177 H Laboratory Data (last 24hrs): 09/16/18 06:19 Potassium 3.9 Carbon Dioxide 26 Anion Gap 6.0 Creatinine 0.71 Est Cr Clr Drug Dosing 110.6 HbA1c: Hemoglobin A1c 7.4 % (4.5-5.6) H 08/23/18 13:08 - Recent Pertinent Medications Outpatient Anti-diabetic Regimen: * NPH 30 units Qam, metformin 1 gm bid * A1c = 7.4% 08-23-18 The patient is currently receiving: * Basal insulin: NPH 30 units QAM (home dose) * Correctional Insulin: Novolog Correction per scale ACHS Goal Range: Low 110 mg/dL - High 160 mg/dL Correction Factor: 30 mg/dL/unit * Prandial insulin: Per carb ratio of 1 unit per 10 grams CHO consumed * Oral Agents: metformin 1 gm bid Risk Factors for Insulin Resistance: * Steroids: no DXM in ortho, DXM 4 IV pulled from omni in OR 09/15 - unclear if given * Recent Surgery: POD 1 * Diet: T2DM - Assessment & Plan Assessment & Plan: ASSESSMENT: * 58 year old female now s/p bilateral knee arthroplasty. Consulted by surgery for glycemic management this morning. Patient is now POD 1. * Started on sliding scale insulin last evening by hospitalist group - received only 4 units * Unclear if DXM was given in OR yesterday - fasting BSG this morning high at 162 mg/dL, may be related to stress from surgery * Will continue with patient's home NPH dose for this morning as diet was started last evening * Will tighten CF/CR for this morning to provide tighter control to CF 20 and CR 7; Adjusted for this evening due to metformin being started and likely won't require as much correctional. Steroids to be wearing off at this time. PLAN FOR INPATIENT GLYCEMIC CONTROL: * Patient's home metformin resumed 3/7 am (Scr stable/CrCl >100 ml/min) * Basal insulin * Resume home NPH 30 units Qam * Bolus insulin - adjusted for evening * NovoLog per scale ACHS or Q6hrs while NPO * Goal Range: Low 110 mg/dL - High 140 mg/dL * Correction Factor: 25 mg/dL/unit * Nutritional / Prandial insulin per carb ratio of 1 unit per 9 grams CHO consumed * Please note that the plan above was derived based on current level of insulin resistance and hospital stress. These recommendations are appropriate for inpatient admission only. Plan of care upon discharge will need to be reassessed to avoid potential outpatient hypo/hyperglycemia. Thank you.
[2018-09-16] MEDS ORDERED: SODIUM CHLORIDE 0.9% 1000ML 500 ML IV ONE (12:30)
[2018-09-16 20:59] LABS: Basophils # (auto) 0.01 K/uL (0-0.2); Basophils % (auto) 0.1 %; Eosinophils # (auto) 0.31 K/uL (0-0.5); Eosinophils % (auto) 2.3 %; Hematocrit (blood only) 29.3 % (37-47); Hemoglobin 9.1 g/dL (12.0-16.0); Immature Granulocytes # (auto) 0.05 K/uL (0.00-0.02); Immature Granulocytes % (auto) 0.4 %; Lymphocytes # (auto) 0.91 K/uL (1.2-3.4); Lymphocytes % (auto) 6.7 %; Mean Corpuscular Volume 89.6 fL (80-100); Mean Platelet Volume 9.4 fL (7.4-10.4); Monocytes # (auto) 1.35 K/uL (0.11-0.59); Monocytes % (auto) 9.9 %; Neutrophils # (auto) 10.97 K/uL (1.4-6.5); Neutrophils % (auto) 80.6 %; Platelet Count 233 K/uL (130-400); RDW Coefficient of Variation 13.1 % (11.5-14.5); Red Blood Count 3.27 M/uL (4.2-5.4)
[2018-09-16 21:04] LABS: Mean Corpuscular Hgb Conc 31.1 g/dL (32-36)
[2018-09-16] MEDS: AMITRIPTYLINE HCL 25 MG TAB PO SCH (21:31)
[2018-09-16] MEDS: SENNA 8.6 MG TAB PO SCH (21:34)
[2018-09-16 21:38] LABS: Albumin Level 2.6 gm/dl (3.4-5.0); Calcium 8.4 mg/dl (8.5-10.1); Creatinine Clr Calc Pharmacy 86.3 ml/min; Est GFR (African American) 81.2; Potassium 4.2 mmol/L (3.5-5.1)
[2018-09-16 21:41] LABS: Albumin Globulin Ratio 0.8 (0.9-2); Bilirubin,Total 0.4 mg/dl (0.2-1); Globulin 3.4 gm/dl (2.5-4.0)
[2018-09-17 05:56] LABS: Basophils # (auto) 0.02 K/uL (0-0.2); Basophils % (auto) 0.2 %; Eosinophils # (auto) 0.58 K/uL (0-0.5); Eosinophils % (auto) 4.5 %; Hematocrit (blood only) 28.7 % (37-47); Hemoglobin 8.9 g/dL (12.0-16.0); Immature Granulocytes # (auto) 0.03 K/uL (0.00-0.02); Immature Granulocytes % (auto) 0.2 %; Lymphocytes # (auto) 1.57 K/uL (1.2-3.4); Lymphocytes % (auto) 12.2 %; Mean Corpuscular Volume 90.5 fL (80-100); Mean Platelet Volume 9.2 fL (7.4-10.4); Monocytes % (auto) 11.6 %; Neutrophils # (auto) 9.19 K/uL (1.4-6.5); Neutrophils % (auto) 71.3 %; Platelet Count 229 K/uL (130-400); RDW Coefficient of Variation 13.3 % (11.5-14.5); RDW Standard Deviation 44.4 fL (36.4-46.3); Red Blood Count 3.17 M/uL (4.2-5.4); White Blood Count 12.89 K/uL (4.8-10.8)
[2018-09-17] MEDS: ACETAMINOPHEN 500 MG TAB PO SCH ×3 (06:12→21:17)
[2018-09-17 06:21] LABS: RBC Morphology Unremarkable
[2018-09-17] MEDS: OXYCODONE HCL IR 5 MG TAB (IMMEDIATE RELEASE) PO PRN ×2 (07:49→12:50)
--- NOTE | 2018-09-17 08:21 | Pharmacy Report ---
Pharmacy Glycemic Short Note 2 - Date of Service September 17, 2018 - Glycemic Short BSG Results (Last 24 hours): 09/16/18 09/16/18 09/16/18 08:07 12:05 17:26 Glucose POC Glucose 177 H 156 H 178 H 09/16/18 09/16/18 09/17/18 20:46 21:28 07:39 Glucose 203 H POC Glucose 191 H 175 H ASSESSMENT: 3-8: * Patient received total of 55 units of insulin yesterday, of which 30 units were NPH * BSGs yesterday had trended down by lunch to 156 mg/dL, but trended back up throughout day * Had originally loosened CF/CR yesterday after addition of metformin, but feel that patient may need tighter coverage * Adjusted CF/CR to CF of 20 and CR of 7 this morning - will continue for rest of today * Fasting is higher this am at 175 mg/dL, but feel like related to not enough correctional yesterday / possibly steroids still having an effect 3-7: * 58 year old female now s/p bilateral knee arthroplasty. Consulted by surgery for glycemic management this morning. Patient is now POD 1. * Started on sliding scale insulin last evening by hospitalist group - received only 4 units * Unclear if DXM was given in OR yesterday - fasting BSG this morning high at 162 mg/dL, may be related to stress from surgery * Will continue with patient's home NPH dose for this morning as diet was started last evening * Will tighten CF/CR for this morning to provide tighter control to CF 20 and CR 7; Adjusted for this evening due to metformin being started and likely won't require as much correctional. PLAN FOR INPATIENT GLYCEMIC CONTROL: * Patient's home metformin resumed 3/7 am (Scr stable/CrCl >100 ml/min) * Basal insulin * Continue home NPH 30 units Qam * Bolus insulin - tightened * NovoLog per scale ACHS or Q6hrs while NPO * Goal Range: Low 110 mg/dL - High 140 mg/dL * Correction Factor: 20 mg/dL/unit * Nutritional / Prandial insulin per carb ratio of 1 unit per 7 grams CHO consumed
[2018-09-17] MEDS: MULTIVITAMIN TAB PO SCH (08:27)
[2018-09-17] MEDS: METFORMIN HCL 500 MG TAB PO SCH ×2 (08:27→21:02)
[2018-09-17] MEDS: PANTOprazole 40 MG TAB PO SCH ×2 (08:27→21:03)
[2018-09-17] MEDS: DOCUSATE SODIUM 100 MG CAP PO SCH ×2 (08:27→20:58)
[2018-09-17] MEDS: SERTRALINE HCL 50 MG TABLET PO SCH (08:28)
[2018-09-17] MEDS: RIVAROXABAN 10 MG TABLET PO SCH (08:28)
[2018-09-17] MEDS: INSULIN ASPART 100 UNITS/ML 3 ML PEN SC SCH ×4 (08:29→21:14)
[2018-09-17] MEDS: INSULIN HUMAN NPH SC SCH (08:31)
[2018-09-17] MEDS ORDERED: KETOROLAC 30 MG/ML VIAL IV STA (09:25)
[2018-09-17] MEDS ORDERED: SODIUM CHLORIDE 0.9% 1000ML 1,000 ML IV SCH (09:30)
[2018-09-17] MEDS: MoRPHine SULFATE CR 15 MG TABCR PO SCH ×2 (10:04→21:07)
--- NOTE | 2018-09-17 10:30 | Progress Note ---
DATE: 09/17/2018 SUBJECTIVE: The patient is postop day #2. Status post bilateral total knee arthroplasty. Upon walking in her room, she is lying in her bed and states that she tried to get up again today and has problems with lightheadedness again. She denies any shortness of breath or chest pain during this period of time and no other symptoms. Current vital signs at 7:05, blood pressure 118/74, pulse 79, respirations 18, temperature was 36.9. She also states that currently the oxycodone that she is taking is not really covering her pain control and is wondering if there is anything else that can be added to her pain regimen. She has no overt complaints at this time. Hemoglobin has dropped down to 8.9 from 9.1 yesterday. BUN and creatinine are within normal limits. Latest blood sugar this morning at 7:39 was 175. OBJECTIVE: [place] dressings are clean, dry and intact on the knees. Calves were soft, nontender. Neurovascularly intact. Toes were mobile. ASSESSMENT: Postoperative day #2 status post bilateral total knee arthroplasty. Pain control issues. PLAN: The patient will be continued on her PT and OT protocols as able. I have contacted medicine service about the patient's lightheadedness, etc. with starting to get ambulatory and they will stop by and see her at some point this morning. She has been given a bolus yesterday of 500 of normal saline, but she continues to have her lightheadedness upon sitting up and standing and trying to ambulate. We will add MS Bib b.i.d. to her pain regimen and also 1 time dose of Toradol. DISCHARGE PLANS: The patient is looking to go to [facility] in [place] if authorization is approved.
[2018-09-17] MEDS: CARVEDILOL 3.125 MG TAB PO SCH ×2 (11:02→20:59)
--- NOTE | 2018-09-17 17:37 | Hospitalist Progress Note ---
Date of Service September 17, 2018 Assessment & Plan (1) Orthostasis: Fortunately while she has had a degree of acute blood loss anemia related to her knee surgeries, it is actually less than I would have expected having had bilateral knee surgeries. That said her orthostasis most likely is a com bination of volume loss from the knee surgeries, as well as a bit of a vagal response from poor pain control. Orthopedic surgery is already escalated her pain meds, we have given a fluid bolus, and after discussion with nursing the plan was to get her out of bed after the fluid bolus was complete. Nursing called me later and noted they had the patient up sitting in a chair successfully for quite a while with no orthostatic symptoms and stable vital signs. Should she have recurrence of symptoms, would bolus another liter or 2, before potentially proceeding to a transfusion. Most likely this will not be necessary. (2) S/p total knee replacement, bilateral: - Pain management, bowel regimen and DVT ppx per the primary team - PT/OT consults (3) DM II (diabetes mellitus, type II), controlled: Sugars have been reasonable, continue current care and continue to follow (4) Benign essential HTN: - BP well controlled, carvedilol is on hold due to her orthostasis, continue to follow pressures. (5) GERD (gastroesophageal reflux disease): - Continue omeprazole 20 mg BID, no complaints in this regard (6) Osteoarthritis: - Has been using meloxicam 15 mg QAM as outpatient, other pain management as above s/p bilateral TKA. (7) Depression: - Continue sertraline 50 mg QAM (8) Migraine headache: - Continue amitriptyline 75 mg HS, no complaints of migraine today (9) PVC (premature ventricular contraction): - Hx of such, stable, Coreg on hold right now (10) Obesity (BMI 30-39.9): - BMI of 39.6, diet and exercise to be encouraged upon discharge. CODE: FULL DVT prophylaxis per orthopedics (Xarelto) Subjective Asked to revisit due to orthostasis. Patient describes only feeling lightheaded whenever she sitting up, then she feels a fairly characteristic lightheaded or dizziness, as well as feeling a bit faint like she is going to pass out, as well as a degree of tunnel vision. She denies any chest pain or shortness of breath with this, although at times she does feel a little nauseated like she might throw up. This really only happens whenever she is getting up, but it has been limiting her from being able to do physical therapy. She also notes that her pain may not be under the best control whenever she is getting up. Review of Systems All systems reviewed & are unremarkable except as noted in HPI & below Physical Exam Vital Signs (Past 24 Hours): Last Vital Signs Temp 36.6 C 09/17/18 15:13 Pulse 82 09/17/18 15:13 Resp 20 09/17/18 15:13 BP 119/71 09/17/18 15:13 Pulse Ox 96 09/17/18 15:13 Physical Exam: General she is awake alert oriented x3 pleasant no distress. HEENT normocephalic atraumatic mucous members moist. Cardio is regular without rubs murmurs or gallops. Lungs clear to auscultation bilaterally no rales rhonchi or wheeze with good effort. Skin shows no rashes no pallor or icterus. Bilateral knee replacement incisions appear clean dry and intact. No calf erythema, no focal neuro deficits
[2018-09-17] MEDS: AMITRIPTYLINE HCL 25 MG TAB PO SCH (21:01)
[2018-09-17] MEDS: SENNA 8.6 MG TAB PO SCH (21:03)
[2018-09-18] MEDS: OXYCODONE HCL IR 5 MG TAB (IMMEDIATE RELEASE) PO PRN ×3 (05:59→13:05)
[2018-09-18] MEDS: ACETAMINOPHEN 500 MG TAB PO SCH ×3 (06:00→21:12)
[2018-09-18 06:14] LABS: Basophils # (auto) 0.01 K/uL (0-0.2); Basophils % (auto) 0.1 %; Eosinophils # (auto) 0.36 K/uL (0-0.5); Eosinophils % (auto) 3.3 %; Hematocrit (blood only) 27.6 % (37-47); Hemoglobin 8.5 g/dL (12.0-16.0); Immature Granulocytes # (auto) 0.03 K/uL (0.00-0.02); Immature Granulocytes % (auto) 0.3 %; Lymphocytes # (auto) 1.95 K/uL (1.2-3.4); Lymphocytes % (auto) 18.1 %; Mean Corpuscular Hgb Conc 30.8 g/dL (32-36); Mean Corpuscular Volume 90.8 fL (80-100); Mean Platelet Volume 9.6 fL (7.4-10.4); Monocytes # (auto) 1.05 K/uL (0.11-0.59); Monocytes % (auto) 9.7 %; Neutrophils # (auto) 7.37 K/uL (1.4-6.5); Neutrophils % (auto) 68.5 %; Platelet Count 263 K/uL (130-400); RDW Coefficient of Variation 13.4 % (11.5-14.5); RDW Standard Deviation 44.7 fL (36.4-46.3); Red Blood Count 3.04 M/uL (4.2-5.4); White Blood Count 10.77 K/uL (4.8-10.8)
--- NOTE | 2018-09-18 06:22 | Orthopedic Progress Note ---
Date of Service September 18, 2018 Assessment & Plan (1) Status post total bilateral knee replacement using cement: will attempt PT today and see how she responds. Awaiting approval for rehab but would need to see how she performs in PT once able to. medicine on board to help treat her orthostasis, H/H 8.5/27.6 this am. Continue DVT prophylaxis with Xarelto, SCDs and BOB hose. Continue current pain regimen. (2) Acute blood loss anemia: Anemia likely due to surgical loss. We will continue to follow her H&H. If she continues to have symptoms, we will restart her fluids. Continue medical management per hospitalist service Subjective Patient is postop day 3 status post bilateral total knee arthroplasty. She is currently lying in bed awake and alert. she has been unable to participate in PT at this point due to feeling lightheaded and dizzy. She did also have a little bit of nausea which improves w meds. She denies any chest pain or shortness of breath. Denies calf pain. Pain is controlled in the knees at this time. Physical Exam Vital Signs (Past 24 Hours): Last Vital Signs Temp 37 C 09/18/18 05:38 Pulse 88 09/18/18 05:38 Resp 16 09/18/18 05:38 BP 136/83 09/18/18 05:38 Pulse Ox 97 09/18/18 05:38 Constitutional: WD/WN, vitals as above Musculoskeletal: bilateral legs: NVDI, bilateal calf SNT, negative rita sign. DP palpable, able to wiggle toes/ankle movement without difficulty. silverlon dressings are clean dry and intact. expected post-operative bruising noted. Results & Data Laboratory Results Laboratory Results WBC 10.77 K/uL (4.8-10.8) 09/18/18 05:29 RBC 3.04 M/uL (4.2-5.4) L 09/18/18 05:29 Hgb 8.5 g/dL (12.0-16.0) L 09/18/18 05:29 Hct 27.6 % (37-47) L 09/18/18 05:29 MCV 90.8 fL (80-100) 09/18/18 05:29 MCH 28.0 pg (25-34) 09/18/18 05:29 MCHC 30.8 g/dL (32-36) L 09/18/18 05:29 RDW Std Deviation 44.7 fL (36.4-46.3) 09/18/18 05:29 RDW Coeff of Isadora 13.4 % (11.5-14.5) 09/18/18 05:29 Plt Count 263 K/uL (130-400) 09/18/18 05:29 MPV 9.6 fL (7.4-10.4) 09/18/18 05:29 Immature Gran % (Auto) 0.3 % 09/18/18 05:29 Neut % (Auto) 68.5 % 09/18/18 05:29 Lymph % (Auto) 18.1 % 09/18/18 05:29 [place] % (Auto) 9.7 % 09/18/18 05:29 Eos % (Auto) 3.3 % 09/18/18 05:29 Baso % (Auto) 0.1 % 09/18/18 05:29 Immature Gran # (Auto) 0.03 K/uL (0.00-0.02) H 09/18/18 05:29 Neut # (Auto) 7.37 K/uL (1.4-6.5) H 09/18/18 05:29 Lymph # (Auto) 1.95 K/uL (1.2-3.4) 09/18/18 05:29 [place] # (Auto) 1.05 K/uL (0.11-0.59) H 09/18/18 05:29 Eos # (Auto) 0.36 K/uL (0-0.5) 09/18/18 05:29 Baso # (Auto) 0.01 K/uL (0-0.2) 09/18/18 05:29 RBC Morphology Unremarkable 09/17/18 05:36 PT 10.6 Seconds (9.0-12.0) 08/23/18 13:08 INR 1.1 (0.9-1.1) 08/23/18 13:08 APTT 25.5 Seconds (21.0-31.0) 08/23/18 13:08 PTT Ratio 1.0 08/23/18 13:08 Sodium 135 mmol/L (136-145) L 09/16/18 20:46 Potassium 4.2 mmol/L (3.5-5.1) 09/16/18 20:46 Chloride 101 mmol/L (98-107) 09/16/18 20:46 Carbon Dioxide 27 mmol/L (21-32) 09/16/18 20:46 Anion Gap 6.0 (3-11) 09/16/18 20:46 BUN 12 mg/dl (7-18) 09/16/18 20:46 Creatinine 0.91 mg/dl (0.6-1.2) 09/16/18 20:46 Est Cr Clr Drug Dosing 86.3 ml/min 09/16/18 20:46 Est GFR ( Amer) 81.2 09/16/18 20:46 Est GFR (Non-Af Amer) 70.0 09/16/18 20:46 BUN/Creatinine Ratio 13.0 (10-20) 09/16/18 20:46 Glucose 203 mg/dl (70-99) H 09/16/18 20:46 POC Glucose 123 (70-99) H 09/17/18 21:12 Estimat Average Glucose 166 mg/dl 08/23/18 13:08 Hemoglobin A1c 7.4 % (4.5-5.6) H 08/23/18 13:08 Calcium 8.4 mg/dl (8.5-10.1) L 09/16/18 20:46 Total Bilirubin 0.4 mg/dl (0.2-1) 09/16/18 20:46 AST 9 U/L (15-37) L 09/16/18 20:46 ALT 15 U/L (12-78) 09/16/18 20:46 Alkaline Phosphatase 49 U/L (45-117) 09/16/18 20:46 Total Protein 6.0 gm/dl (6.4-8.2) L 09/16/18 20:46 Albumin 2.6 gm/dl (3.4-5.0) L 09/16/18 20:46 Globulin 3.4 gm/dl (2.5-4.0) 09/16/18 20:46 Albumin/Globulin Ratio 0.8 (0.9-2) L 09/16/18 20:46 Urine Color Yellow 08/23/18 Unknown Urine Appearance Clear (Clear) 08/23/18 Unknown Urine pH 5.0 (4.5-7.5) 08/23/18 Unknown Ur Specific [place] 1.015 (1.000-1.030) 08/23/18 Unknown Urine Protein Negative (Negative) 08/23/18 Unknown Urine Glucose (UA) Negative (Negative) 08/23/18 Unknown Urine Ketones Negative (Negative) 08/23/18 Unknown Urine Blood Negative (Negative) 08/23/18 Unknown Urine Nitrite Negative (Negative) 08/23/18 Unknown Urine Bilirubin Negative (Negative) 08/23/18 Unknown Urine Urobilinogen Negative (Negative) 08/23/18 Unknown Ur Leukocyte Esterase Negative (Negative) 08/23/18 Unknown Hepatitis C Ab Screen Neg (Neg) 09/16/18 06:19 Blood Type O Positive 08/23/18 13:00 Antibody Screen NEGATIVE 08/23/18 13:00
[2018-09-18 06:40] LABS: Hypochromasia Present
[2018-09-18] MEDS: PANTOprazole 40 MG TAB PO SCH ×2 (07:41→21:12)
[2018-09-18] MEDS: MULTIVITAMIN TAB PO SCH (07:41)
[2018-09-18] MEDS: MoRPHine SULFATE CR 15 MG TABCR PO SCH ×2 (07:42→21:13)
[2018-09-18] MEDS: DOCUSATE SODIUM 100 MG CAP PO SCH ×2 (07:42→21:13)
[2018-09-18] MEDS: RIVAROXABAN 10 MG TABLET PO SCH (07:42)
[2018-09-18] MEDS: METFORMIN HCL 500 MG TAB PO SCH ×2 (07:42→21:12)
[2018-09-18] MEDS: SERTRALINE HCL 50 MG TABLET PO SCH (07:42)
[2018-09-18] MEDS: CARVEDILOL 3.125 MG TAB PO SCH (07:45)
[2018-09-18] MEDS: INSULIN ASPART 100 UNITS/ML 3 ML PEN SC SCH ×4 (07:48→20:48)
[2018-09-18] MEDS: INSULIN HUMAN NPH SC SCH (07:48)
--- NOTE | 2018-09-18 09:00 | Pharmacy Report ---
Pharmacy Glycemic Short Note 2 - Date of Service September 18, 2018 - Glycemic Short BSG Results (Last 24 hours): 09/17/18 09/17/18 09/17/18 12:00 17:04 21:12 POC Glucose 153 H 137 H 123 H 09/18/18 06:29 POC Glucose 124 H ASSESSMENT: 3-9: * Ms. Snow received 53 units of insulin in addition to the metformin that was resumed 09/16 * BSGs are trending downward, most likely with resumption of metformin and periop steroids wearing off * Will plan to loosen Novolog parameters since patient normally does not take this at home 3-8: * Patient received total of 55 units of insulin yesterday, of which 30 units were NPH * BSGs yesterday had trended down by lunch to 156 mg/dL, but trended back up throughout day * Had originally loosened CF/CR yesterday after addition of metformin, but feel that patient may need tighter coverage * Adjusted CF/CR to CF of 20 and CR of 7 this morning - will continue for rest of today * Fasting is higher this am at 175 mg/dL, but feel like related to not enough correctional yesterday / possibly steroids still having an effect 3-7: * 58 year old female now s/p bilateral knee arthroplasty. Consulted by surgery for glycemic management this morning. Patient is now POD 1. * Started on sliding scale insulin last evening by hospitalist group - received only 4 units * Unclear if DXM was given in OR yesterday - fasting BSG this morning high at 162 mg/dL, may be related to stress from surgery * Will continue with patient's home NPH dose for this morning as diet was started last evening * Will tighten CF/CR for this morning to provide tighter control to CF 20 and CR 7; Adjusted for this evening due to metformin being started and likely won't require as much correctional. PLAN FOR INPATIENT GLYCEMIC CONTROL: * Continue metformin 1 gm BID * Basal insulin - no change * Continue home NPH 30 units Qam * Bolus insulin - loosen CF/CR * NovoLog per scale ACHS or Q6hrs while NPO * Goal Range: Low 110 mg/dL - High 140 mg/dL * Correction Factor: 25 mg/dL/unit * Nutritional / Prandial insulin per carb ratio of 1 unit per 8 grams CHO consumed Discharge Recommendations: * A1c slightly above goal * Continue outpatient regimen on discharge with close outpatient f/u to adjust as necessary
[2018-09-18] MEDS: SODIUM CHLORIDE 0.9% 1000ML 1,000 ML IV SCH ×3 (09:16→10:26)
--- NOTE | 2018-09-18 18:06 | Hospitalist Progress Note ---
Date of Service September 18, 2018 Assessment & Plan (1) Orthostasis: Fortunately while she has had a degree of acute blood loss anemia related to her knee surgeries, it is actually less than I would have expected having had bilateral knee surgeries. Thus far she has not needed transfusion, but she is still significantly orthostatic. We will give 2 L of saline, if she continues to be orthostatic we will give a transfusion for fluid that has more oncotic pressure to stay in the vessels. Encouraged her to try to be upright more even if it is just in the chair with nursing assist, so that her veins can adapt to gravity better again. Ongoing attempts at PT/OT (2) S/p total knee replacement, bilateral: - Pain management, bowel regimen and DVT ppx per the primary team - PT/OT consults ongoing (3) DM II (diabetes mellitus, type II), controlled: Sugars continue to be reasonable, continue current care and continue to follow (4) Benign essential HTN: - BP well controlled, carvedilol is on hold due to her orthostasis, continue to follow pressures. (5) GERD (gastroesophageal reflux disease): - Continue omeprazole 20 mg BID, offers no complaints in this regard (6) Osteoarthritis: - Has been using meloxicam 15 mg QAM as outpatient, other pain management as above s/p bilateral TKA. (7) Depression: - Continue sertraline 50 mg QAM (8) Migraine headache: - Continue amitriptyline 75 mg HS, no complaints of migraine (9) PVC (premature ventricular contraction): - Hx of such, stable, Coreg on hold right now related to pressures (10) Obesity (BMI 30-39.9): - BMI of 39.6, diet and exercise to be encouraged upon discharge. CODE: FULL DVT prophylaxis per orthopedics (Xarelto) Subjective Get significantly orthostatic again today trying to get out of bed with therapy. She notes this time her pain was under good control, but she just started feel ing lightheaded pale weak and sweaty. It resolved when she laid down. Her notes that he feels like she needs a G suit to compress her veins, as we discuss orthostasis and its mechanism I note that in a way he is correct. Physical Exam Vital Signs (Past 24 Hours): Last Vital Signs Temp 36.8 C 09/18/18 15:15 Pulse 67 09/18/18 15:15 Resp 20 09/18/18 15:15 BP 124/79 09/18/18 15:15 Pulse Ox 97 09/18/18 15:15 Physical Exam: General she is awake alert oriented x3 pleasant no acute distress. HEENT normocephalic atraumatic mucous membranes moist. Cardio is regular without rubs murmurs gallops. Skin shows no rashes no pallor or icterus.
[2018-09-18] MEDS: SENNA 8.6 MG TAB PO SCH (21:12)
[2018-09-18] MEDS: AMITRIPTYLINE HCL 25 MG TAB PO SCH (21:12)
[2018-09-19 05:48] LABS: Basophils # (auto) 0.02 K/uL (0-0.2); Basophils % (auto) 0.2 %; Eosinophils # (auto) 0.42 K/uL (0-0.5); Eosinophils % (auto) 3.7 %; Hematocrit (blood only) 26.6 % (37-47); Hemoglobin 8.2 g/dL (12.0-16.0); Immature Granulocytes # (auto) 0.02 K/uL (0.00-0.02); Immature Granulocytes % (auto) 0.2 %; Lymphocytes # (auto) 1.56 K/uL (1.2-3.4); Lymphocytes % (auto) 13.9 %; Mean Corpuscular Hgb Conc 30.8 g/dL (32-36); Mean Corpuscular Volume 89.6 fL (80-100); Mean Platelet Volume 9.1 fL (7.4-10.4); Monocytes # (auto) 0.99 K/uL (0.11-0.59); Monocytes % (auto) 8.8 %; Neutrophils # (auto) 8.23 K/uL (1.4-6.5); Neutrophils % (auto) 73.2 %; Platelet Count 289 K/uL (130-400); RDW Coefficient of Variation 13.5 % (11.5-14.5); RDW Standard Deviation 44.3 fL (36.4-46.3); Red Blood Count 2.97 M/uL (4.2-5.4); White Blood Count 11.24 K/uL (4.8-10.8)
--- NOTE | 2018-09-19 06:17 | Orthopedic Progress Note ---
Date of Service September 19, 2018 Assessment & Plan (1) Status post total bilateral knee replacement using cement: POD #4 s/p bilateral TKA Patient awaiting placement at [facility], has not been able to do much in the way of PT due to LH and dizziness, states it was somewhat better last ev ening. will attempt more PT today, await authorization. H/H 8.2/26.6 this am. Continue DVT prophylaxis with Xarelto, SCDs and BOB hose. Continue current pain regimen. (2) Acute blood loss anemia: Anemia likely due to surgical loss. We will continue to follow her H&H. Continue medical management per hospitalist service Subjective Patient is postop day 4 s/p bilateral TKAs, She is currently lying in bed awake and alert. she states she felt a little better yesterday afternoon, less lightheaded. Nausea better this am. She denies any chest pain or shortness of breath. Denies calf pain. Pain is controlled in the knees at this time. Physical Exam Vital Signs (Past 24 Hours): Last Vital Signs Temp 37.2 C 09/18/18 23:00 Pulse 90 09/18/18 23:00 Resp 16 09/18/18 23:00 BP 144/77 H 09/18/18 23:00 Pulse Ox 97 09/18/18 23:00 Constitutional: WD/WN, vitals as above no acute distress Musculoskeletal: bilateral legs: NVDI, bilateal calf SNT, negative rita sign. DP palpable, able to wiggle toes/ankle movement without difficulty. silverlon dressings are clean dry and intact. expected post-operative bruising noted. Results & Data Laboratory Results Laboratory Results WBC 11.24 K/uL (4.8-10.8) H 09/19/18 05:20 RBC 2.97 M/uL (4.2-5.4) L 09/19/18 05:20 Hgb 8.2 g/dL (12.0-16.0) L 09/19/18 05:20 Hct 26.6 % (37-47) L 09/19/18 05:20 MCV 89.6 fL (80-100) 09/19/18 05:20 MCH 27.6 pg (25-34) 09/19/18 05:20 MCHC 30.8 g/dL (32-36) L 09/19/18 05:20 RDW Std Deviation 44.3 fL (36.4-46.3) 09/19/18 05:20 RDW Coeff of Isadora 13.5 % (11.5-14.5) 09/19/18 05:20 Plt Count 289 K/uL (130-400) 09/19/18 05:20 MPV 9.1 fL (7.4-10.4) 09/19/18 05:20 Immature Gran % (Auto) 0.2 % 09/19/18 05:20 Neut % (Auto) 73.2 % 09/19/18 05:20 Lymph % (Auto) 13.9 % 09/19/18 05:20 [place] % (Auto) 8.8 % 09/19/18 05:20 Eos % (Auto) 3.7 % 09/19/18 05:20 Baso % (Auto) 0.2 % 09/19/18 05:20 Immature Gran # (Auto) 0.02 K/uL (0.00-0.02) 09/19/18 05:20 Neut # (Auto) 8.23 K/uL (1.4-6.5) H 09/19/18 05:20 Lymph # (Auto) 1.56 K/uL (1.2-3.4) 09/19/18 05:20 [place] # (Auto) 0.99 K/uL (0.11-0.59) H 09/19/18 05:20 Eos # (Auto) 0.42 K/uL (0-0.5) 09/19/18 05:20 Baso # (Auto) 0.02 K/uL (0-0.2) 09/19/18 05:20 RBC Morphology Unremarkable 09/17/18 05:36 Hypochromasia Present 09/18/18 05:29 PT 10.6 Seconds (9.0-12.0) 08/23/18 13:08 INR 1.1 (0.9-1.1) 08/23/18 13:08 APTT 25.5 Seconds (21.0-31.0) 08/23/18 13:08 PTT Ratio 1.0 08/23/18 13:08 Sodium 135 mmol/L (136-145) L 09/16/18 20:46 Potassium 4.2 mmol/L (3.5-5.1) 09/16/18 20:46 Chloride 101 mmol/L (98-107) 09/16/18 20:46 Carbon Dioxide 27 mmol/L (21-32) 09/16/18 20:46 Anion Gap 6.0 (3-11) 09/16/18 20:46 BUN 12 mg/dl (7-18) 09/16/18 20:46 Creatinine 0.91 mg/dl (0.6-1.2) 09/16/18 20:46 Est Cr Clr Drug Dosing 86.3 ml/min 09/16/18 20:46 Est GFR ( Amer) 81.2 09/16/18 20:46 Est GFR (Non-Af Amer) 70.0 09/16/18 20:46 BUN/Creatinine Ratio 13.0 (10-20) 09/16/18 20:46 Glucose 203 mg/dl (70-99) H 09/16/18 20:46 POC Glucose 108 (70-99) H 09/18/18 20:12 Estimat Average Glucose 166 mg/dl 08/23/18 13:08 Hemoglobin A1c 7.4 % (4.5-5.6) H 08/23/18 13:08 Calcium 8.4 mg/dl (8.5-10.1) L 09/16/18 20:46 Total Bilirubin 0.4 mg/dl (0.2-1) 09/16/18 20:46 AST 9 U/L (15-37) L 09/16/18 20:46 ALT 15 U/L (12-78) 09/16/18 20:46 Alkaline Phosphatase 49 U/L (45-117) 09/16/18 20:46 Total Protein 6.0 gm/dl (6.4-8.2) L 09/16/18 20:46 Albumin 2.6 gm/dl (3.4-5.0) L 09/16/18 20:46 Globulin 3.4 gm/dl (2.5-4.0) 09/16/18 20:46 Albumin/Globulin Ratio 0.8 (0.9-2) L 09/16/18 20:46 Urine Color Yellow 08/23/18 Unknown Urine Appearance Clear (Clear) 08/23/18 Unknown Urine pH 5.0 (4.5-7.5) 08/23/18 Unknown Ur Specific [place] 1.015 (1.000-1.030) 08/23/18 Unknown Urine Protein Negative (Negative) 08/23/18 Unknown Urine Glucose (UA) Negative (Negative) 08/23/18 Unknown Urine Ketones Negative (Negative) 08/23/18 Unknown Urine Blood Negative (Negative) 08/23/18 Unknown Urine Nitrite Negative (Negative) 08/23/18 Unknown Urine Bilirubin Negative (Negative) 08/23/18 Unknown Urine Urobilinogen Negative (Negative) 08/23/18 Unknown Ur Leukocyte Esterase Negative (Negative) 08/23/18 Unknown Hepatitis C Ab Screen Neg (Neg) 09/16/18 06:19 Blood Type O Positive 08/23/18 13:00 Antibody Screen NEGATIVE 08/23/18 13:00
[2018-09-19 06:34] LABS: RBC Morphology Unremarkable
[2018-09-19] MEDS: ACETAMINOPHEN 500 MG TAB PO SCH ×3 (06:49→21:46)
[2018-09-19] MEDS: DOCUSATE SODIUM 100 MG CAP PO SCH ×2 (08:39→21:12)
[2018-09-19] MEDS: PANTOprazole 40 MG TAB PO SCH ×2 (08:39→21:13)
[2018-09-19] MEDS: SERTRALINE HCL 50 MG TABLET PO SCH (08:39)
[2018-09-19] MEDS: METFORMIN HCL 500 MG TAB PO SCH ×2 (08:39→21:12)
[2018-09-19] MEDS: RIVAROXABAN 10 MG TABLET PO SCH (08:39)
[2018-09-19] MEDS: MULTIVITAMIN TAB PO SCH (08:39)
[2018-09-19] MEDS: INSULIN ASPART 100 UNITS/ML 3 ML PEN SC SCH ×4 (08:42→21:13)
[2018-09-19] MEDS: INSULIN HUMAN NPH SC SCH (08:43)
[2018-09-19] MEDS: OXYCODONE HCL IR 5 MG TAB (IMMEDIATE RELEASE) PO PRN ×2 (08:46→12:53)
[2018-09-19] MEDS: MoRPHine SULFATE CR 15 MG TABCR PO SCH ×2 (08:47→21:10)
--- NOTE | 2018-09-19 17:24 | Hospitalist Progress Note ---
Date of Service September 19, 2018 Assessment & Plan (1) Orthostasis: Fortunately while she has had a degree of acute blood loss anemia related to her knee surgeries, it is actually less than I would have expected having had bilateral knee surgeries. She did have rather significant orthostasis for the last couple of days, but after given 1 L 2 days ago, and 2 L one day ago, she is now doing much better. (2) S/p total knee replacement, bilateral: - Pain management, bowel regimen and DVT ppx per the primary team - PT/OT consults ongoing (3) DM II (diabetes mellitus, type II), controlled: Sugars continue to show good control, continue current care and continue to follow (4) Benign essential HTN: - BP well controlled, carvedilol is on hold due to her orthostasis, continue to follow pressures. Her discharge. (5) GERD (gastroesophageal reflux disease): - Continue omeprazole 20 mg BID, offers no complaints in this regard (6) Osteoarthritis: - Has been using meloxicam 15 mg QAM as outpatient, other pain management as above s/p bilateral TKA. (7) Depression: - Continue sertraline 50 mg QAM (8) Migraine headache: - Continue amitriptyline 75 mg HS, no complaints of migraine today (9) PVC (premature ventricular contraction): - Hx of such, stable, Coreg on hold right now related to pressures, resume after discharge (10) Obesity (BMI 30-39.9): - BMI of 39.6, diet and exercise to be encouraged upon discharge. CODE: FULL DVT prophylaxis per orthopedics (Xarelto) (11) Discharge planning issues: Medically she is now appearing stable for discharge. We will sign off, please do not hesitate to contact us if we can be of further assistance. Thank you. Subjective Is feeling better! She was able to work with therapy and be out of bed without much of any lightheadedness. She noted just a little bit of lightheadedness whenever she first sat up, but sitting still allowed everything to equilibrate and she felt better. Pain is under good control. No other complaints. Review of Systems All systems reviewed & are unremarkable except as noted in HPI & below Physical Exam Vital Signs (Past 24 Hours): Last Vital Signs Temp 36.7 C 09/19/18 15:21 Pulse 80 03/10/19 15:21 Resp 18 09/19/18 15:21 BP 110/71 09/19/18 15:21 Pulse Ox 95 09/19/18 15:40 Physical Exam: General she is awake and alert pleasant no distress. HEENT normocephalic atraumatic mucous membranes moist. Breathing is unlabored no accessory muscle use good effort. Skin shows no rashes no pallor or icterus.
[2018-09-19] MEDS: SENNA 8.6 MG TAB PO SCH (21:11)
[2018-09-19] MEDS: AMITRIPTYLINE HCL 25 MG TAB PO SCH (21:14)
[2018-09-20 05:31] LABS: Basophils # (auto) 0.03 K/uL (0-0.2); Basophils % (auto) 0.3 %; Eosinophils # (auto) 0.48 K/uL (0-0.5); Hematocrit (blood only) 27.3 % (37-47); Hemoglobin 8.4 g/dL (12.0-16.0); Immature Granulocytes # (auto) 0.02 K/uL (0.00-0.02); Immature Granulocytes % (auto) 0.2 %; Lymphocytes # (auto) 2.11 K/uL (1.2-3.4); Lymphocytes % (auto) 22.2 %; Mean Corpuscular Hgb Conc 30.8 g/dL (32-36); Mean Corpuscular Volume 89.8 fL (80-100); Mean Platelet Volume 8.8 fL (7.4-10.4); Monocytes # (auto) 0.99 K/uL (0.11-0.59); Monocytes % (auto) 10.4 %; Neutrophils # (auto) 5.88 K/uL (1.4-6.5); Neutrophils % (auto) 61.9 %; Platelet Count 320 K/uL (130-400); RDW Coefficient of Variation 13.6 % (11.5-14.5); RDW Standard Deviation 44.6 fL (36.4-46.3); Red Blood Count 3.04 M/uL (4.2-5.4); White Blood Count 9.51 K/uL (4.8-10.8)
[2018-09-20] MEDS: ACETAMINOPHEN 500 MG TAB PO SCH ×2 (05:33→13:30)
[2018-09-20 05:59] LABS: RBC Morphology Unremarkable
[2018-09-20] MEDS: METFORMIN HCL 500 MG TAB PO SCH (08:23)
[2018-09-20] MEDS: PANTOprazole 40 MG TAB PO SCH (08:24)
[2018-09-20] MEDS: RIVAROXABAN 10 MG TABLET PO SCH (08:24)
[2018-09-20] MEDS: DOCUSATE SODIUM 100 MG CAP PO SCH (08:24)
[2018-09-20] MEDS: SERTRALINE HCL 50 MG TABLET PO SCH (08:24)
[2018-09-20] MEDS: MULTIVITAMIN TAB PO SCH (08:24)
[2018-09-20] MEDS: INSULIN HUMAN NPH SC SCH (08:26)
[2018-09-20] MEDS: INSULIN ASPART 100 UNITS/ML 3 ML PEN SC SCH ×2 (08:28→12:33)
[2018-09-20] MEDS: MoRPHine SULFATE CR 15 MG TABCR PO SCH (08:31)
[2018-09-20] MEDS: OXYCODONE HCL IR 5 MG TAB (IMMEDIATE RELEASE) PO PRN ×2 (08:31→12:47)
[2018-09-20 08:42] LABS: Basophils # (auto) 0.02 K/uL (0-0.2); Basophils % (auto) 0.2 %; Eosinophils # (auto) 0.36 K/uL (0-0.5); Hematocrit (blood only) 29.3 % (37-47); Immature Granulocytes # (auto) 0.04 K/uL (0.00-0.02); Immature Granulocytes % (auto) 0.3 %; Lymphocytes # (auto) 1.64 K/uL (1.2-3.4); Lymphocytes % (auto) 13.5 %; Mean Corpuscular Volume 90.2 fL (80-100); Monocytes # (auto) 1.08 K/uL (0.11-0.59); Monocytes % (auto) 8.9 %; Neutrophils # (auto) 9.05 K/uL (1.4-6.5); Neutrophils % (auto) 74.1 %; Platelet Count 371 K/uL (130-400); RDW Coefficient of Variation 13.6 % (11.5-14.5); RDW Standard Deviation 45.3 fL (36.4-46.3); Red Blood Count 3.25 M/uL (4.2-5.4); White Blood Count 12.19 K/uL (4.8-10.8)
[2018-09-20 09:00] LABS: BUN Creatinine Ratio 16.7 (10-20); Creatinine Clr Calc Pharmacy 109.1 ml/min; Est GFR (African American) 107.7; Potassium 4.4 mmol/L (3.5-5.1)
[2018-09-20 09:05] LABS: Mean Corpuscular Hgb Conc 30.7 g/dL (32-36)
[2018-09-20] MEDS ORDERED: BISACODYL 5 MG TABEC PO PRN (10:19)
--- NOTE | 2018-09-20 10:42 | Orthopedic Progress Note ---
Date of Service September 20, 2018 Assessment & Plan (1) Status post total bilateral knee replacement using cement: POD #5 s/p bilateral TKA Patient awaiting placement at [facility] rehab. DC today if arrangements made. H/H 9.0 this am. Continue DVT prophylaxis with Xarelto, SCDs and BOB hose. Continue current pain regimen. I personally saw and examined the patient. Agree with above assessment and plan. (2) Acute blood loss anemia: Anemia likely due to surgical loss. We will continue to follow her H&H. Continue medical management per hospitalist service Subjective Pt lying in bed. No complaints today. Hoping to go to rehab today. Pain controlled. Physical Exam Vital Signs (Past 24 Hours): Last Vital Signs Temp 36.9 C 09/20/18 06:54 Pulse 91 H 09/20/18 06:54 Resp 18 09/20/18 06:54 BP 125/77 09/20/18 06:54 Pulse Ox 95 09/20/18 06:54 Physical Exam: Silverlon dressings C/D/I. Calves soft, NT. NV intact. Results & Data Laboratory Results 09/20/18 09/20/18 09/20/18 Range/Units 08:30 08:30 07:56 WBC 12.19 H (4.8-10.8) K/uL RBC 3.25 L (4.2-5.4) M/uL Hgb 9.0 L (12.0-16.0) g/dL Hct 29.3 L (37-47) % MCV 90.2 (80-100) fL MCH 27.7 (25-34) pg MCHC 30.7 L (32-36) g/dL RDW Std Deviation 45.3 (36.4-46.3) fL RDW Coeff of Isadora 13.6 (11.5-14.5) % Plt Count 371 (130-400) K/uL MPV 9.0 (7.4-10.4) fL Immature Gran % (Auto) 0.3 % Neut % (Auto) 74.1 % Lymph % (Auto) 13.5 % [place] % (Auto) 8.9 % Eos % (Auto) 3.0 % Baso % (Auto) 0.2 % Immature Gran # (Auto) 0.04 H (0.00-0.02) K/uL Neut # (Auto) 9.05 H (1.4-6.5) K/uL Lymph # (Auto) 1.64 (1.2-3.4) K/uL [place] # (Auto) 1.08 H (0.11-0.59) K/uL Eos # (Auto) 0.36 (0-0.5) K/uL Baso # (Auto) 0.02 (0-0.2) K/uL RBC Morphology Sodium 137 (136-145) mmol/L Potassium 4.4 (3.5-5.1) mmol/L Chloride 100 (98-107) mmol/L Carbon Dioxide 30 (21-32) mmol/L Anion Gap 7.0 (3-11) BUN 12 (7-18) mg/dl Creatinine 0.72 (0.6-1.2) mg/dl Est Cr Clr Drug Dosing 109.1 ml/min Est GFR ( Amer) 107.7 Est GFR (Non-Af Amer) 93.0 BUN/Creatinine Ratio 16.7 (10-20) Glucose 204 H (70-99) mg/dl POC Glucose 198 H (70-99) Calcium 9.0 (8.5-10.1) mg/dl Magnesium 2.0 (1.8-2.4) mg/dl 09/20/18 09/19/18 09/19/18 Range/Units 05:18 20:26 17:03 WBC 9.51 (4.8-10.8) K/uL RBC 3.04 L (4.2-5.4) M/uL Hgb 8.4 L (12.0-16.0) g/dL Hct 27.3 L (37-47) % MCV 89.8 (80-100) fL MCH 27.6 (25-34) pg MCHC 30.8 L (32-36) g/dL RDW Std Deviation 44.6 (36.4-46.3) fL RDW Coeff of Isadora 13.6 (11.5-14.5) % Plt Count 320 (130-400) K/uL MPV 8.8 (7.4-10.4) fL Immature Gran % (Auto) 0.2 % Neut % (Auto) 61.9 % Lymph % (Auto) 22.2 % [place] % (Auto) 10.4 % Eos % (Auto) 5.0 % Baso % (Auto) 0.3 % Immature Gran # (Auto) 0.02 (0.00-0.02) K/uL Neut # (Auto) 5.88 (1.4-6.5) K/uL Lymph # (Auto) 2.11 (1.2-3.4) K/uL [place] # (Auto) 0.99 H (0.11-0.59) K/uL Eos # (Auto) 0.48 (0-0.5) K/uL Baso # (Auto) 0.03 (0-0.2) K/uL RBC Morphology Unremarkable Sodium (136-145) mmol/L Potassium (3.5-5.1) mmol/L Chloride (98-107) mmol/L Carbon Dioxide (21-32) mmol/L Anion Gap (3-11) BUN (7-18) mg/dl Creatinine (0.6-1.2) mg/dl Est Cr Clr Drug Dosing ml/min Est GFR ( Amer) Est GFR (Non-Af Amer) BUN/Creatinine Ratio (10-20) Glucose (70-99) mg/dl POC Glucose 140 H 92 (70-99) Calcium (8.5-10.1) mg/dl Magnesium (1.8-2.4) mg/dl 09/19/18 Range/Units 12:20 WBC (4.8-10.8) K/uL RBC (4.2-5.4) M/uL Hgb (12.0-16.0) g/dL Hct (37-47) % MCV (80-100) fL MCH (25-34) pg MCHC (32-36) g/dL RDW Std Deviation (36.4-46.3) fL RDW Coeff of Isadora (11.5-14.5) % Plt Count (130-400) K/uL MPV (7.4-10.4) fL Immature Gran % (Auto) % Neut % (Auto) % Lymph % (Auto) % [place] % (Auto) % Eos % (Auto) % Baso % (Auto) % Immature Gran # (Auto) (0.00-0.02) K/uL Neut # (Auto) (1.4-6.5) K/uL Lymph # (Auto) (1.2-3.4) K/uL [place] # (Auto) (0.11-0.59) K/uL Eos # (Auto) (0-0.5) K/uL Baso # (Auto) (0-0.2) K/uL RBC Morphology Sodium (136-145) mmol/L Potassium (3.5-5.1) mmol/L Chloride (98-107) mmol/L Carbon Dioxide (21-32) mmol/L Anion Gap (3-11) BUN (7-18) mg/dl Creatinine (0.6-1.2) mg/dl Est Cr Clr Drug Dosing ml/min Est GFR ( Amer) Est GFR (Non-Af Amer) BUN/Creatinine Ratio (10-20) Glucose (70-99) mg/dl POC Glucose 102 H (70-99) Calcium (8.5-10.1) mg/dl Magnesium (1.8-2.4) mg/dl
--- NOTE | 2018-09-20 13:48 | Pharmacy Report ---
Pharmacy Glycemic Short Note 2 - Date of Service September 20, 2018 - Glycemic Short BSG Results (Last 24 hours): 09/19/18 09/19/18 09/20/18 17:03 20:26 07:56 Glucose POC Glucose 92 140 H 198 H 09/20/18 09/20/18 08:30 11:53 Glucose 204 H POC Glucose 160 H ASSESSMENT: 09/20 * Patient received 46 units of Insulin in addition to metformin * BSGs well controlled yesterday- no changes to novolog parameters * Fasting BSG this morning elevated, trending up from 09/18, may need to add additional NPH dose with dinner, will monitor for one more day prior to adjusment 3-: * Ms. Snow received 53 units of insulin in addition to the metformin that was resumed 09/16 * BSGs are trending downward, most likely with resumption of metformin and periop steroids wearing off * Will plan to loosen Novolog parameters since patient normally does not take this at home 3-8: * Patient received total of 55 units of insulin yesterday, of which 30 units were NPH * BSGs yesterday had trended down by lunch to 156 mg/dL, but trended back up throughout day * Had originally loosened CF/CR yesterday after addition of metformin, but feel that patient may need tighter coverage * Adjusted CF/CR to CF of 20 and CR of 7 this morning - will continue for rest of today * Fasting is higher this am at 175 mg/dL, but feel like related to not enough correctional yesterday / possibly steroids still having an effect 3-7: * 58 year old female now s/p bilateral knee arthroplasty. Consulted by surgery for glycemic management this morning. Patient is now POD 1. * Started on sliding scale insulin last evening by hospitalist group - received only 4 units * Unclear if DXM was given in OR yesterday - fasting BSG this morning high at 162 mg/dL, may be related to stress from surgery * Will continue with patient's home NPH dose for this morning as diet was started last evening * Will tighten CF/CR for this morning to provide tighter control to CF 20 and CR 7; Adjusted for this evening due to metformin being started and likely won't require as much correctional. PLAN FOR INPATIENT GLYCEMIC CONTROL: * Continue metformin 1 gm BID * Basal insulin - no change * Continue home NPH 30 units Qam * Bolus insulin - loosen CF/CR * NovoLog per scale ACHS or Q6hrs while NPO * Goal Range: Low 110 mg/dL - High 140 mg/dL * Correction Factor: 25 mg/dL/unit * Nutritional / Prandial insulin per carb ratio of 1 unit per 8 grams CHO consumed Discharge Recommendations: * A1c slightly above goal * Continue outpatient regimen on discharge with close outpatient f/u to adjust as necessary
--- NOTE | 2018-09-20 16:56 | Hospitalist Progress Note ---
Date of Service September 20, 2018 Assessment & Plan (1) Orthostasis: (2) S/p total knee replacement, bilateral: (3) DM II (diabetes mellitus, type II), controlled: (4) Benign essential HTN: (5) GERD (gastroesophageal reflux disease): (6) Osteoarthritis: (7) Depression: (8) Migraine headache: (9) PVC (premature ventricular contraction): (10) Obesity (BMI 30-39.9): (11) Discharge planning issues: 58-year-old white female admitted September 14, 2018 because ofMonitor knee pain,Health procedure done on September 15, 2018 S/p total knee replacement, bilateral: Pain management, bowel regimen and DVT ppx per the primary team Has been using meloxicam 15 mg QAM as outpatient, other pain management as above s/p bilateral TKA. 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 HEENT normocephalic atraumatic mucous membranes moist. Cardio is regular without rubs murmurs gallops. Lungs clear to auscultation bilaterally, No wheezing rhonchi or crackles Abdomen was soft nontender bowel sounds positive Denies dysuria urgency or frequency Skin shows no rashes no pallor or icterus. Results & Data Laboratory Results Laboratory Results - last 24 hr 09/19/18 09/19/18 09/20/18 17:03 20:26 05:18 WBC 9.51 RBC 3.04 L Hgb 8.4 L Hct 27.3 L MCV 89.8 MCH 27.6 MCHC 30.8 L RDW Std Deviation 44.6 RDW Coeff of Isadora 13.6 Plt Count 320 MPV 8.8 Immature Gran % (Auto) 0.2 Neut % (Auto) 61.9 Lymph % (Auto) 22.2 Cameron % (Auto) 10.4 Eos % (Auto) 5.0 Baso % (Auto) 0.3 Immature Gran # (Auto) 0.02 Neut # (Auto) 5.88 Lymph # (Auto) 2.11 Cameron # (Auto) 0.99 H Eos # (Auto) 0.48 Baso # (Auto) 0.03 RBC Morphology Unremarkable Sodium Potassium Chloride Carbon Dioxide Anion Gap BUN Creatinine Est Cr Clr Drug Dosing Est GFR ( Amer) Est GFR (Non-Af Amer) BUN/Creatinine Ratio Glucose POC Glucose 92 140 H Calcium Magnesium 09/20/18 09/20/18 09/20/18 07:56 08:30 08:30 WBC 12.19 H RBC 3.25 L Hgb 9.0 L Hct 29.3 L MCV 90.2 MCH 27.7 MCHC 30.7 L RDW Std Deviation 45.3 RDW Coeff of Isadora 13.6 Plt Count 371 MPV 9.0 Immature Gran % (Auto) 0.3 Neut % (Auto) 74.1 Lymph % (Auto) 13.5 Cameron % (Auto) 8.9 Eos % (Auto) 3.0 Baso % (Auto) 0.2 Immature Gran # (Auto) 0.04 H Neut # (Auto) 9.05 H Lymph # (Auto) 1.64 Cameron # (Auto) 1.08 H Eos # (Auto) 0.36 Baso # (Auto) 0.02 RBC Morphology Sodium 137 Potassium 4.4 Chloride 100 Carbon Dioxide 30 Anion Gap 7.0 BUN 12 Creatinine 0.72 Est Cr Clr Drug Dosing 109.1 Est GFR ( Amer) 107.7 Est GFR (Non-Af Amer) 93.0 BUN/Creatinine Ratio 16.7 Glucose 204 H POC Glucose 198 H Calcium 9.0 Magnesium 2.0 09/20/18 11:53 WBC RBC Hgb Hct MCV MCH MCHC RDW Std Deviation RDW Coeff of Isadora Plt Count MPV Immature Gran % (Auto) Neut % (Auto) Lymph % (Auto) Cameron % (Auto) Eos % (Auto) Baso % (Auto) Immature Gran # (Auto) Neut # (Auto) Lymph # (Auto) Cameron # (Auto) Eos # (Auto) Baso # (Auto) RBC Morphology Sodium Potassium Chloride Carbon Dioxide Anion Gap BUN Creatinine Est Cr Clr Drug Dosing Est GFR ( Amer) Est GFR (Non-Af Amer) BUN/Creatinine Ratio Glucose POC Glucose 160 H Calcium Magnesium
[2018-09-20] MEDS ORDERED: METFORMIN HCL 500 MG TAB PO SCH (17:00)
--- NOTE | 2018-09-21 09:30 | Discharge Summary ---
Date of Service September 24, 2018 Discharge Data Consultations 09/09/18 14:23 Consult Hospitalist Routine 09/15/18 12:01 Consult Case Management - Discharge Planning Routine Procedures Performed Operation Date: 09/15/18 07:30 Actual Procedures p Bilateral Total Knee Arthroplasty(Bilateral) - Keven Mcdermott MD
--- NOTE | 2018-09-24 04:13 | Discharge Summary ---
DISCHARGE DIAGNOSIS: Degenerative joint disease, bilateral knees. SECONDARY DIAGNOSES: Diabetes mellitus, gastroesophageal reflux disease, hiatal hernia, obesity, renal calculi. CONSULTS: Josie Cortez PA-C/Xavier Garduno MD COMPLICATIONS: None. PROCEDURES: Bilateral total knee arthroplasty performed by Dr. Mcdermott on 09/15/2018. BRIEF HISTORY: As dictated in the history and physical. HOSPITAL SUMMARY: The patient was admitted on the above-noted date and had the above-noted surgery performed, which she tolerated well. On her first postoperative day, she was lying in bed, awake and alert and stated that when she tried to get up that morning to use the restroom, she had a fair amount of lightheadedness and her blood pressure dropped down. Her blood pressure reading that morning was 96/53 and pulse was 48. She denied any lightheadedness at that time and did have a little bit of nausea, which had subsided. She denied chest pain or shortness of breath. Denied calf pain. Pain was controlled in her knees. Vital signs showed afebrile and above-noted BP and pulse and the pulse ox was 99 on room air. Dressings were clean, dry, and intact. Calves were soft and nontender. Neurovascularly intact. Toes were mobile. Plans were to continue IV fluids and continue to try to get the patient up. Hemoglobin was 9.3. Nursing continued to try along with PT to get the patient up during the day, however, she was still having some orthostatic hypotension, for which then a bolus of 500 mL was given to the patient. By her second postoperative day, she was lying in bed and stated that she tried to get up again today and had problems with lightheadedness again. She denies shortness of breath, chest pain during that time and had no other symptoms. Blood pressure was 118/74, pulse 79, respirations 18, temperature was 36.9. She stated that the oxycodone that she was taking was not covering her pain control and she had no other complaints. Hemoglobin had dropped to 8.9 from 9.1 the previous day. BUN and creatinine were within normal limits. Silverlon dressings were clean, dry, and intact. Calves were soft and nontender. Neurovascularly intact. Toes were mobile. I contacted the medicine service and they were planning to see the patient that day and another bolus was given to the patient. MS Mccartney was added b.i.d. to her pain regimen and a one-time dose of Toradol was given. Plans were for her to go to [facility] in [place]. The patient responded better with the second bolus and was starting to get up and around a bit more by her third postoperative day and she had been up to participate in PT that morning. She did have a little bit of lightheadedness and some nausea. She had no other complaints and vital signs were stable and she was afebrile. She was continued on her protocol throughout the weekend since authorization for insurances could not be done for [facility] rehabilitation. She continued to remain stable and medicine continued to follow the patient during her stay. She continued to han with the lightheadedness off and on and several boluses had been given. By 09/20/2018, she had no complaints and was hoping to go to rehab. Pain was controlled. Vital signs were stable and she was afebrile. Dressings were intact. Calves were soft and nontender. Neurovascularly intact. Hemoglobin was 9.0. She was then authorized to go to [facility] and was remaining stable and it was felt she could be discharged to [facility] for further physical therapy and care on 09/20/2018. For further review, please see chart. LABORATORY AND X-RAY DATA: As per chart. DISCHARGE INSTRUCTIONS: The patient was discharged to [facility] on 09/20/2018. DIET: Diabetic. ACTIVITY: Weightbearing as tolerated in the right and left lower extremities with walker. Follow TK instruction sheets and special care instructions as noted. Follow up with Dr. Mcdermott in 2 weeks. The patient to call for appointment if one has not been made for you. DISCHARGE MEDICATIONS: Acetaminophen 1000 mg p.o. q. 8 hours, oxycodone 5 mg p.o. q. 4 hours, Senokot 17.2 mg p.o. at bedtime, Bactrim-DS 1 tab p.o. 12 hours for 1 week, Xarelto 10 mg p.o. daily. Resume home meds as listed.
== END 2018-09-20 17:53 | DRG 462 ==
LOC: ASU 04:56 → SUATTDRO 10:53 → 3E 10:53